=== PATIENT | female | born 1935 | race Caucasian/White ===

== ENCOUNTER 2016-03-31 | Outpatient (CLI) | payer MEDICARE, OTHER | END 2016-03-31 09:12 | disposition critical access hospital (66) | DX: R51 Headache (principal) | CPT/HCPCS: A0425; A0429 ==

== ENCOUNTER 2016-03-31 09:30 | Emergency (ER) | payer MEDICARE, OTHER ==
[2016-03-31] MEDS ORDERED: oxyCODONE 5 MG TABLET PO STA ×2 (09:35→12:25)
[2016-03-31] MEDS ORDERED: ONDANSETRON ODT 4 MG TABLET TL STA (09:36)
[2016-03-31] MEDS ORDERED: ONDANSETRON ODT 4 MG TABLET ONE (09:43)
[2016-03-31] MEDS ORDERED: oxyCODONE 5 MG TABLET ONE ×2 (09:43→12:28)
== END 2016-03-31 12:34 | disposition home or self-care (01) ==
DX: R51 Headache (principal); H66.91 Otitis media, unspecified, right ear
CPT/HCPCS: 36415; 70450; 72125; 80048; 99283; 99284; A9270; Q0162

== ENCOUNTER 2016-04-03 09:22 | Outpatient (CLI) | payer MEDICARE, OTHER | END 2016-04-03 09:23 | disposition home or self-care (01) | DX: Z12.31 Encounter for screening mammogram for malignant neoplasm of breast (principal) ==

== ENCOUNTER 2017-03-15 07:40 | Outpatient (CLI) | payer MEDICARE, OTHER | END 2017-03-15 07:41 | disposition critical access hospital (66) | LOC: EMS 07:40 | PROVIDERS: ATTEND Surgery | DX: R41.0 Disorientation, unspecified (principal); R51 Headache | CPT/HCPCS: A0425; A0429 ==

== ENCOUNTER 2017-03-15 07:57 | Observation (INO) | payer MEDICARE, OTHER ==
[2017-03-15] MEDS ORDERED: SODIUM CHLORIDE 0.9% 500 ML IV ONE (08:11)
--- NOTE | 2017-03-15 08:12 | ED Physician Documentation ---
PD HPI ALTERED MENTAL STATUS - Stated complaint Stated Complaint: CONFUSION - Chief complaint Chief Complaint: Neuro - History obtained from History obtained from: Patient - History of Present Illness Timing - onset: How many hours ago (likely in the past hour) Timing - details: Gradual onset, Still present Quality / character: Confused Associated symptoms: Headache. No: Fever, Stiff neck, Dyspnea, Cough, NVD Contributing factors: Recent illness (had URI symptoms last week and had abx by Dr. Belle for sore throat. Improved those symptoms.) Basline status: Alert and oriented X 3, Ambulatory Recently seen: Emergency Dept (2 days ago for headache and given meds in ED. Has had headache visits intermittently but not with the confusion/numbness associated.) Review of Systems Constitutional: denies: Fever, Chills Nose: denies: Rhinorrhea / runny nose, Congestion Throat: reports: Sore throat (last week) Respiratory: reports: Cough (last week) GI: denies: Abdominal Pain, Nausea, Vomiting, Diarrhea : denies: Dysuria, Frequency Skin: denies: Rash, Lesions Neurologic: denies: Generalized weakness, Near syncope, Syncope PD PAST MEDICAL HISTORY - Past Medical History Cardiovascular: None Respiratory: None Neuro: Headache/migraine Endocrine/Autoimmune: None - Past Surgical History Past Surgical History: Yes General: Appendectomy 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 - Present Medications Home Medications: Ambulatory Orders Medication Instructions Recorded Confirmed No Known Home Medications [No 03/13/17 03/13/17 Known Home Medications] - Allergies Allergies/Adverse Reactions: Allergies Allergy/AdvReac Type Severity Reaction Status Date / Time Penicillins Allergy Unknown Verified 03/13/17 15:31 - Living Situation Living Situation: reports: Alone Living Arrangement: reports: At home - Social History Does the pt smoke?: No Smoking Status: Never smoker Does the pt drink ETOH?: No Does the pt have substance abuse?: No - Immunizations Immunizations are current?: Yes PD ED PE NORMAL - Vitals Vital signs reviewed: Yes - General General: Well developed/nourished, Other (seems uncomfortable due to frontal headache. 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 No: Alert and oriented X 3, Normal speech (expressive aphasia with some to moderate sentence structure and word abnormal. No dysarthria. ) PD ED PE EXPANDED - Neuro Neuro: Confused, Normal motor, Normal Sensation, CNII-XII intact, PERRL, Cerebellar nl, Aphasia. No: Normal Speech (some expressive aphasia), Weakness, Abnormal sensation, Nystagmus, Dysarthria Results - Vitals Vitals: Vital Signs - 24 hr 03/15/17 03/15/17 03/15/17 07:58 08:22 09:33 Temperature 36.3 C L Heart Rate 75 71 80 Respiratory 18 18 16 Rate Blood Pressure 189/108 H 170/78 H 181/113 H O2 Saturation 98 98 97 03/15/17 03/15/17 10:14 11:08 Temperature Heart Rate 75 73 Respiratory 16 17 Rate Blood Pressure 169/90 H 159/71 H O2 Saturation 98 97 Oxygen O2 Source Room air - Labs Labs: Laboratory Tests 03/15/17 03/15/17 03/15/17 08:09 09:05 09:05 WBC 12.5 H RBC 4.37 Hgb 13.6 Hct 40.5 MCV 92.6 MCH 31.1 H MCHC 33.5 RDW 12.9 Plt Count 406 MPV 7.3 L Neut # 10.0 H Lymph # 1.3 L [place] # 1.1 H Eos # 0.1 Baso # 0.1 Absolute Nucleated RBC 0.00 Nucleated RBC % 0.0 ESR Sodium 132 L Potassium 4.3 Chloride 93 L Carbon Dioxide 23 Anion Gap 16.0 H BUN 15 Creatinine 0.5 Estimated GFR (MDRD) 118 Glucose 107 H Calcium 9.8 Magnesium 1.9 Total Bilirubin 0.4 AST 38 ALT 27 Alkaline Phosphatase 71 Troponin I < 0.04 Total Protein 8.3 H Albumin 4.4 Globulin 3.9 Albumin/Globulin Ratio 1.1 Lipase 28 Urine Color Urine Clarity Urine pH Ur Specific [place] Urine Protein Urine Glucose (UA) Urine Ketones Urine Occult Blood Urine Nitrite Urine Bilirubin Urine Urobilinogen Ur Leukocyte Esterase Ur Microscopic Review Urine Culture Comments 03/15/17 03/15/17 10:13 10:39 WBC RBC Hgb Hct MCV MCH MCHC RDW Plt Count MPV Neut # Lymph # [place] # Eos # Baso # Absolute Nucleated RBC Nucleated RBC % ESR 17 Sodium Potassium Chloride Carbon Dioxide Anion Gap BUN Creatinine Estimated GFR (MDRD) Glucose Calcium Magnesium Total Bilirubin AST ALT Alkaline Phosphatase Troponin I Total Protein Albumin Globulin Albumin/Globulin Ratio Lipase Urine Color LT. YELLOW Urine Clarity CLEAR Urine pH 7.5 Ur Specific [place] 1.015 Urine Protein NEGATIVE Urine Glucose (UA) NEGATIVE Urine Ketones NEGATIVE Urine Occult Blood NEGATIVE Urine Nitrite NEGATIVE Urine Bilirubin NEGATIVE Urine Urobilinogen 0.2 (NORMAL) Ur Leukocyte Esterase NEGATIVE Ur Microscopic Review NOT INDICATED Urine Culture Comments NOT INDICATED - Rads (name of study) head CT Radiology: Prelim report reviewed (no acute process), Discussed with rads brain angio CT Radiology: Prelim report reviewed (no acute process seen) PD MEDICAL DECISION MAKING - ED course Complexity details: reviewed results, re-evaluated patient (She is improved but still with some headache. Her speech is normal at this time. I am not sure she is having an atypical or complex migraine though it is unusual to have migraines start at her age. She does have recurrent headaches in the past but not with neuro symptoms. Consider TIA versus stroke with a normal CT T Michelle of the brain at this time. Inflammation marker of the sed rate is normal so unlikely to be vasculitis. Her white count is slightly elevated but no obvious bacterial infection. She does not have any adenopathy nor stiff neck to suggest meningitis. She does not have fever. I am not sure the cause of her symptoms. I would be concern for TIA or other vascular headache with neuro deficit.), considered differential, d/w patient Departure - Departure Disposition: ED Place in Observation Clinical Impression: Expressive aphasia Headache Qualifiers: Headache type: unspecified Headache chronicity pattern: acute headache Intractability: not intractable Qualified Code(s): R51 - Headache Condition: Stable Record reviewed to determine appropriate education?: Yes
--- NOTE | 2017-03-15 08:25 | CT Report ---
EXAM: CT HEAD EXAM DATE: 03/15/2017 08:19 AM. CLINICAL HISTORY: Confusion and trouble with vision this morning. COMPARISON: 03/13/2017. TECHNIQUE: Multiaxial CT images were obtained from the foramen magnum to the vertex. Reformats: Coron al. IV contrast: None. In accordance with CT protocol optimization, one or more of the following dose reduction techniques w ere utilized for this exam: automated exposure control, adjustment of mA and/or KV based on patient s ize, or use of iterative reconstructive technique. FINDINGS: Parenchyma: No intraparenchymal hemorrhage. No evidence of mass, midline shift, or CT findings of acu te infarction. Gutierrez-white differentiation is distinct. Diffuse chronic microangiopathic white matter changes are evident. Extraaxial Spaces: Normal for age. No subdural or epidural collections identified. Ventricles: The ventricles and cortical sulci are enlarged, consistent with age-related tissue loss. Sinuses and orbits: Imaged paranasal sinuses, orbits, and mastoids show no significant abnormality. Bones: No evidence of fracture or calvarial defect. Other: None. IMPRESSION: Generalized age-related cortical atrophic changes without evidence of acute intracranial abnormality. No significant change from prior. Critical test: Results conveyed to Dr. Mariee at 0822 hrs. [facility] Referring Provider Line: [phone] SITE ID: [id number]
[2017-03-15] MEDS ORDERED: MORPHINE 10 MG/ML VIAL IVP STA (08:41)
[2017-03-15] MEDS ORDERED: ONDANSETRON 4 MG/2 ML VIAL IVP STA (08:41)
[2017-03-15] MEDS ORDERED: IOPAMIDOL-300 100 ML VIAL ONE (08:55)
[2017-03-15] MEDS ORDERED: IOPAMIDOL-300 100 ML VIAL IVP ONE ×2 (09:26→14:25)
--- NOTE | 2017-03-15 09:39 | CT Report ---
EXAM: CT ANGIOGRAM HEAD. CT SCAN OF THE HEAD WITHOUT AND WITH CONTRAST. EXAM DATE: 03/15/2017 09:25 AM CLINICAL HISTORY: Headache for 2 days and confusion. COMPARISON: CT of the brain without contrast earlier today at 0815 hrs.. TECHNIQUE: - CT Scan Head: Using a multidetector scanner, axial images were acquired from the foramen magnum to the skull vertex prior to and following contrast administration. - CT Angiogram: Using a multidetector scanner, high-resolution axial images were acquired from the sk ull base through vertex following rapid infusion of intravenous contrast. Reformats: Multiplanar MIP reformats were reconstructed. Nascet criteria used for stenosis measurement. IV Contrast: 80 mL Isovue 300. In accordance with CT protocol optimization, one or more of the following dose reduction techniques w ere utilized for this exam: automated exposure control, adjustment of mA and/or KV based on patient s ize, or use of iterative reconstructive technique. FINDINGS: Brain CT without contrast: No acute abnormality or significant change, age-related changes are present. Brain CT with contrast: No abnormal enhancement. Head CT angiogram: No intracranial large vessel flow-limiting stenosis or occlusion. No evidence for aneurysm resighini of [place] or intracranial vertebrobasilar insufficiency. Patent distal internal carotid arteries. Impression: 1. No CT evidence for acute intracranial abnormality or enhancing mass. 2. Head CTA shows no evidence for large vessel occlusion or aneurysm. [facility] Referring Provider Line: [phone] SITE ID: [id number]
[2017-03-15 09:44] LABS: ALBUMIN 4.4 g/dL (3.2-5.5); ALBUMIN/GLOBULIN RATIO 1.1 (1.0-2.2); BILIRUBIN,TOTAL 0.4 mg/dL (0.2-1.0); CALCIUM 9.8 mg/dL (8.5-10.3); CREATININE 0.5 mg/dL (0.4-1.0); MAGNESIUM 1.9 mg/dL (1.7-2.8); TOTAL PROTEIN 8.3 g/dL (6.7-8.2)
[2017-03-15 10:30] LABS: CLARITY,URINE CLEAR (CLEAR); LEUKOCYTE ESTERASE, URINE NEGATIVE (NEGATIVE); NITRITE,URINE NEGATIVE (NEGATIVE); OCCULT BLOOD,URINE NEGATIVE (NEGATIVE); PH,URINE 7.5 PH (5.0-7.5); PROTEIN,URINE NEGATIVE (NEGATIVE); UROBILINOGEN,URINE 0.2 (NORMAL) E.U./dL (NORMAL)
[2017-03-15 10:31] LABS: BILIRUBIN,URINE NEGATIVE (NEGATIVE); GLUCOSE, URINE (UA) NEGATIVE (NEGATIVE); KETONES,URINE (UA) NEGATIVE (NEGATIVE)
[2017-03-15 10:34] LABS: BASOPHILS # (AUTO) 0.1 10^3/uL (0.0-0.1); BASOPHILS % (AUTO) 0.5 %; EOSINOPHILS # (AUTO) 0.1 10^3/uL (0.0-0.7); EOSINOPHILS % (AUTO) 0.6 %; HGB - HEMOGLOBIN 13.6 g/dL (12.0-16.0); LYMPHOCYTES # (AUTO) 1.3 10^3/uL (1.5-3.5); LYMPHOCYTES % (AUTO) 10.3 %; MEAN CORPUSCULAR HEMOGLOBIN 31.1 pg (27.0-31.0); MEAN CORPUSCULAR HGB CONC 33.5 g/dL (32.0-36.0); MEAN CORPUSCULAR VOLUME 92.6 fL (81.0-99.0); MEAN PLATELET VOLUME 7.3 fL (7.9-10.8); MONOCYTES # (AUTO) 1.1 10^3/uL (0.0-1.0); NEUTROPHILS % (AUTO) 79.6 %; PLT - PLATELET COUNT 406 10^3/uL (130-450); RED BLOOD COUNT 4.37 10^6/uL (4.20-5.40); RED CELL DISTRIBUTION WIDTH 12.9 % (12.0-15.0); WHITE BLOOD COUNT 12.5 x10^3/uL (4.8-10.8)
[2017-03-15] MEDS ORDERED: KETOROLAC 60 MG/2 ML VIAL IVP STA (11:08)
[2017-03-15] MEDS ORDERED: ACETAMINOPHEN 325 MG TABLET PO STA (11:08)
[2017-03-15] MEDS ORDERED: ACETAMINOPHEN 325 MG TABLET PO PRN (12:29)
[2017-03-15] MEDS ORDERED: SODIUM CHLORIDE FLUSH 0.9% 10 ML SYRINGE IVP PRN (12:29)
[2017-03-15] MEDS ORDERED: ONDANSETRON ODT 4 MG TABLET TL PRN (12:29)
[2017-03-15] MEDS ORDERED: oxyCODONE 5 MG TABLET PO PRN (12:29)
[2017-03-15] MEDS ORDERED: ONDANSETRON 4 MG/2 ML VIAL IVP PRN (12:29)
[2017-03-15 12:37] LABS: MUDS CUTOFF CONCENTRATIONS CUTOFF CONC BELOW:
[2017-03-15 12:38] LABS: AMPHETAMINE SCREEN,URINE NEGATIVE (NEGATIVE); BENZODIAZEPINES SCREEN, URINE NEGATIVE (NEGATIVE); COCAINE SCREEN URINE NEGATIVE (NEGATIVE); METHADONE SCREEN, URINE NEGATIVE (NEGATIVE); METHAMPHETAMINES SCREEN, URINE NEGATIVE (NEGATIVE); OPIATE SCREEN, URINE NEGATIVE (NEGATIVE); OXYCODONE SCREEN, URINE NEGATIVE (NEGATIVE); PROPOXYPHENE SCREEN, URINE NEGATIVE (NEGATIVE); TRICYCLIC ANTIDEPRESSANT,URINE NEGATIVE (NEGATIVE)
--- NOTE | 2017-03-15 13:58 | Ultrasound Preliminary Report ---
Exam: US CAROTID DOPPLER COMPLETE IMPRESSION: No hemodynamically significant stenoses. Validated velocity measurements with angiographic measurements and velocity criteria are extrapolated from diameter data as defined by the Society of Radiologists in Ultrasound Consensus Conference Radi ology 2003; 229;340-346. [facility] SITE ID: [id number]
--- NOTE | 2017-03-15 14:18 | Ultrasound Report ---
EXAM: CAROTID DOPPLER ULTRASOUND EXAM DATE: 03/15/2017 12:54 PM. CLINICAL HISTORY: Transient aphasia, confusion. COMPARISON: None. TECHNIQUE: Real-time sonographic vascular imaging was performed by the director database through the caroti d arterial system with a linear transducer utilizing color-flow, Doppler flow and spectral analysis. Multiple rental sales representative static images were saved for review. FINDINGS: RIGHT: RCCA Prox: PSV 91 cm/sec. RCCA Dist: PSV 78 cm/sec, EDV 15 cm/sec. RECA: PSV 98 cm/sec. R Bulb: PSV 102 cm/sec, EDV 14 cm/sec. ERNESTO Prox: PSV 84 cm/sec, EDV 10 cm/sec. ERNESTO Mid: PSV 63 cm/sec, EDV 17 cm/sec. ERNESTO Dist: PSV 50 cm/sec, EDV 13 cm/sec. RVA: PSV 54 cm/sec. RVA flow direction: Antegrade. LEFT: LCCA Prox: PSV 87 cm/sec. LCCA Dist: PSV 97 cm/sec, EDV 16 cm/sec. LECA: PSV 72 cm/sec. L Bulb: PSV 82 cm/sec, EDV 9 cm/sec. LICA Prox: PSV 82 cm/sec, EDV 22 cm/sec. LICA Mid: PSV 97 cm/sec, EDV 23 cm/sec. LICA Dist: PSV 75 cm/sec, EDV 20 cm/sec. LVA: PSV 46 cm/sec. LVA flow direction: Antegrade. Other: Minimal atheromatous disease is seen in the right internal carotid artery. Focal calcified orestes que and atheromatous disease is seen in the left carotid bulb/internal carotid artery. IMPRESSION: No hemodynamically significant stenoses. Validated velocity measurements with angiographic measurements and velocity criteria are extrapolated from diameter data as defined by the Society of Radiologists in Ultrasound Consensus Conference Radi ology 2003; 229;340-346. [facility] Referring Provider Line: [phone] SITE ID: [id number]
[2017-03-15] MEDS: SODIUM CHLORIDE FLUSH 0.9% 10 ML SYRINGE IVP SCH ×2 (14:37→21:03)
[2017-03-15] MEDS ORDERED: CARBOXYMETHYLCELLULOSE OPHTH DROPS EACHEYE PRN (14:59)
[2017-03-16] MEDS: SODIUM CHLORIDE FLUSH 0.9% 10 ML SYRINGE IVP SCH ×2 (06:06→07:41)
[2017-03-16 06:47] LABS: BASOPHILS # (AUTO) 0.1 10^3/uL (0.0-0.1); BASOPHILS % (AUTO) 1.1 %; EOSINOPHILS # (AUTO) 0.2 10^3/uL (0.0-0.7); EOSINOPHILS % (AUTO) 2.2 %; HGB - HEMOGLOBIN 13.2 g/dL (12.0-16.0); LYMPHOCYTES # (AUTO) 2.5 10^3/uL (1.5-3.5); LYMPHOCYTES % (AUTO) 24.4 %; MEAN CORPUSCULAR HEMOGLOBIN 31.1 pg (27.0-31.0); MEAN CORPUSCULAR HGB CONC 33.9 g/dL (32.0-36.0); MEAN CORPUSCULAR VOLUME 91.8 fL (81.0-99.0); MEAN PLATELET VOLUME 7.3 fL (7.9-10.8); MONOCYTES # (AUTO) 1.3 10^3/uL (0.0-1.0); MONOCYTES % (AUTO) 13.1 %; NEUTROPHILS # (AUTO) 6.1 10^3/uL (1.5-6.6); NEUTROPHILS % (AUTO) 59.2 %; PLT - PLATELET COUNT 439 10^3/uL (130-450); RED BLOOD COUNT 4.25 10^6/uL (4.20-5.40); RED CELL DISTRIBUTION WIDTH 12.4 % (12.0-15.0); WHITE BLOOD COUNT 10.2 x10^3/uL (4.8-10.8)
[2017-03-16] MEDS ORDERED: POLYETHYLENE GLYCOL 3350 17 GM PACKET PO SCH (09:00)
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
[2017-03-16 11:29] VITALS: BP 134/58
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
--- NOTE | 2017-03-16 13:04 | HISTORY & PHYSICAL EXAMINATION ---
DATE OF SERVICE: 03/15/2017 Physician: Gisela Dunaway MD DATE OF ADMISSION: 03/15/2017 PRIMARY CARE PROVIDER: Nicole Fontana ADMITTING PROVIDER: Gisela Dunaway MD CHIEF COMPLAINT: Garbled speech, confusion, and change in vision. HISTORY OF PRESENT ILLNESS: This is a mary elderly female who I suspect probably has some cognitive deficits of aging. She is a mary person, but wanders in her conversational style, and sometimes it is difficult to assess if she is at her baseline with her confusion or if this is her usual status. She lives alone. She is still able to drive, pay her own bills. She says meals are simple, but she eats 3 meals a day. Her risk factors for stroke or arteriosclerotic disease are age. She does not have diabetes, hyperlipidemia, smoking history, or hypertension. She has multiple encounters in the electronic medical record for headache. That goes back to 2011. She says that she used to have tremendous headaches associated with cervical spine disease. Once her spine got fixed with the fusion in 2011, her headaches got better, but in looking at her EMR she has encounters dating to after that. There is one encounter in the EMR from 08/2014 where she describes driving home and having an onset of right visual field defect that lasted 15-20 minutes. She has been told that she may have a migraine headache. With this current episode, she says that she started having a headache without fever, chills or sore throat a few hours ago. It gradually came on and became very severe. It caused her to feel confused, and she cannot remember if the visual defect was with this episode, or the episode from 2014. While she denies current focal deficit to the ER doctor, she reports a focal deficit to the nurse who is doing the intake on med/surg, and to me as well. She says that she felt like her right arm and right hand were tingly and numb. Prior to today, she was seen in the emergency room for a headache on 03/13/[address] Valle. That was associated with vomiting. She had just been worked on by her chiropractor as well in an effort to alleviate the headache and it did not get better. With Dr. Valle's evaluation, she was mildly hypertensive at 184. She received Ofirmev and Zofran and was able to go home. Today because of the visual field deficits, and confusion and inability to speak correctly, Dr. Mariee wondered if there was a different type of event going on. Her blood pressure is 189/108 and also went as high as 181/113. She is afebrile. Oxygenating well on room air. He finds her with a normal physical exam. A CT of the head is negative and CT angiogram of the head is negative. Carotid Dopplers have been done as well and she has no hemodynamically significant stenosis. She is now placed in observation. I have asked her if she has been seen by Neurology or a headache specialist for this. She does not remember. She says that this week she asked her daughter to buy her something for the headache. Her daughter bought her a 6- pack of beer yesterday. She only had one and she really did not like it. PAST MEDICAL HISTORY: 1. Osteoporosis. She used to take Forteo injections and then stopped for a while. Lost her bone density and then went back to taking Boniva. 2. Celiac disease with gluten intolerance. 3. Degenerative joint disease. 4. Cognitive deficit of aging. 5. G6, P6. 6. History of isolated thrombocytosis. It waxed and waned between 2014 and 2017. No thromboembolic events. No bleeding. Seen by Dr. Venkatesh Montaño, Oncology and cleared. ALLERGIES: NO KNOWN DRUG ALLERGIES. MEDICATIONS: 1. Boniva 150 mg every 28 days. 2. Calcium with vitamins. 3. Vitamin D. SOCIAL HISTORY: She was born in [place], and moved to [place] during the middle of World War II. She her first after meeting him in [place] and he was an [employer] man. Unfortunately, he at the age of 58 with a myocardial infarction. She then met her second who was in the [place] and they moved to [facility] for his career and she spent the rest of her life here on [facility]. She never smoked. She rarely drinks. Again, her last beer was last night. She has 6 children. One lives in [place], 1 in [place], 1 in [place], 1 in [place], 1 in [place], and 1 in [place]. She has no history of recreational substance abuse. FAMILY HISTORY: Mom at age 74 of endometrial cancer. Dad at age 76 of a heart attack. She had 1 brother who of unknown type of neoplasm in his 40s. Her 6 children are healthy as far as she knows. REVIEW OF SYSTEMS: CONSTITUTIONAL: She denies any constitutional complaints of unexpected weight changes, fevers, sweats. No unusual fatigue. ENT: She had the visual changes, but again I am not quite clear and she is neither of whether those visual changes are of a previous description from a previous ER visit in 2015 or is she talking about yesterday. She denies glaucoma or cataracts. She denies dysphagia. She felt that she had a momentary episode of dysarthria last night. PULMONARY: Denies coughing, wheezing, chest congestion. No history of asthma or allergies. CARDIOVASCULAR: Denies history of murmurs, arrhythmias, orthopnea, leg edema. GASTROINTESTINAL: Until she figured out she was gluten intolerant, her gut was miserable. Now that she has figured it out, she does much better. No problems with constipation or diarrhea. She denies rectal bleeding, but there is a note in the EMR where she was seen in the emergency room for rectal bleeding in 2011. She cannot remember if she had a colonoscopy or not. Meals are usually breakfast of gluten-free oatmeal or an egg. Lunch is something like a tuna sandwich or she will do a refrigerator scramble. Dinner can be a potato with lots of butter, salsa and cheese. She does not really like to eat meat. GENITOURINARY: Denies urgency, frequency, dysuria. No flank pain. JOINTS: Are occasionally achy in the morning, but nothing severe. No swelling. No new arthropathy. DERMATOLOGIC: Denies new lesions, new rashes, new itching. PSYCHIATRIC: Denies depression, anxiety, hallucinations. CENTRAL NERVOUS SYSTEM: She says that she has always been a "ditzy," forgetful person. She forgets where her keys are, her purse is, but she has never gotten lost. She has not forgotten to pay bills. She does describe driving with visual disturbances and her dysarthria. She denies syncope, seizures. PHYSICAL EXAMINATION: GENERAL: She is a mary, slender, alert, elderly female whose temperature is 36.5 on med/surg with a pulse of 68, blood pressure 132/48, respirations 15 and 95% on room air. Again, she had quite a bit of high blood pressure in the emergency room at 189/108. HEENT: Pupils are reactive. Sclerae are nonicteric. [place] and moist oral mucosa. LUNGS: Clear to auscultation and percussion. HEART: PMI is normally placed with a regular rate and rhythm. No murmurs, rubs or gallops. ABDOMEN: Soft, nontender. No organomegaly. Normal bowel sounds. EXTREMITIES: Thin, no clubbing, cyanosis or edema and only minimal deformities of osteoarthritis in the fingers and toes. NEUROLOGIC: She is alert, but can give conflicting dates. Sometimes it is 2018 , sometimes it is 1918. She cannot remember her children's numbers. It takes 5 efforts to remember all 6 children and where they live. It takes quite a bit of effort to remember when she moved to [place], but she has no focal deficits. 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 She has no tremors, no gait ataxia. CT of the head is reviewed as above, CT angiogram as above. Carotid Dopplers negative. LABORATORY STUDIES: Show a mild hyponatremia of 132 that has been present since March 2016. Glucose 107. Liver enzymes normal. Troponin less than 0.04. White cell count 12.5. That was elevated earlier this week as well. Platelets were 497 earlier, now 406. Urinalysis clear of infection. Urine tox screen is completely negative. ASSESSMENT AND PLAN: 1. A mary, elderly woman who has intermittent episodes of headache, and subjective complaints of dysarthria. I am also sensing cognitive deficits that have appeared to be subtly worse. Differential diagnosis will include the TIA she fears, but I also wonder if this one is just baseline dementia with gradual worsening and the headache syndrome, which is chronic, would be confusing her. She will be placed in observation overnight. I will attest that I do not anticipate this woman spending more than 1 midnight. If she stays longer than the 1 midnight, she will be reassessed at 96 hours for transfer or discharge. 2. Episodic malignant hypertension. Could this be early PRES syndrome? We will monitor blood pressure while she stays here and see if it links up with her high blood pressure and episodes of confusion. 3. Elevated white cell count, and intermittently elevated platelet. At this time, she has been seen by Oncology once before. If WBC continues to be elevated without signs of infection, she should continue to be followed by her PCP to monitor for an early bone marrow dyscrasia. 4. Cognitive deficit of aging. I am going to contact any of her children, see where they are with her mother's health. Wonder if there is any way that she could get a little bit more support. With her driving and using bad judgment, I wonder if she should be driving at all. 5. DO NOT RESUSCITATE status. 6. Deep venous thrombosis prophylaxis will be just encouraging ambulation since she is at low risk. TD: 03/16/2017 14:03 REIC
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
== END 2017-03-16 12:18 | disposition home or self-care (01) ==
LOC: EDUNIT# → ED 07:57 → OBS 12:29
PROVIDERS: ADMIT Specialist; ATTEND Specialist
DX: G45.9 Transient cerebral ischemic attack, unspecified (principal); G44.89 Other headache syndrome; I10 Essential (primary) hypertension; R41.89 Other symptoms and signs involving cognitive functions and awareness; M81.0 Age-related osteoporosis without current pathological fracture; E87.1 Hypo-osmolality and hyponatremia; Z66 Do not resuscitate; D72.829 Elevated white blood cell count, unspecified; Z79.83 Long term (current) use of bisphosphonates; K90.0 Celiac disease
CPT/HCPCS: 36415; 70450; 70496; 80053; 80306; 81003; 83690; 83735; 84484; 85025; 85651; 93005; 93880; 96361; 96374; 99285; A9270; G0378; Q9967; 81001; 87086

== ENCOUNTER 2017-03-24 09:20 | Outpatient (CLI) | payer MEDICARE, OTHER ==
--- NOTE | 2017-03-25 12:20 | DEXA Report ---
DEXA SCAN: 03/24/2017 CLINICAL INDICATION: Postmenopausal. TECHNIQUE: Dual energy x-ray absorptiometry (DXA) was performed on a [employer] system. Regions measured are the AP spine, femoral neck, and, if needed, forearm. COMPARISON: None. In accordance with the International Society for Clinical Densitometry (ISCD) guidelines, data from previous exams may be reanalyzed using current recommendations and techniques. This is done to allow a more accurate basis for comparison with the current study. FINDINGS The data for the lumbar spine is as follows: REGION BMD (g/cm/cm) T-SCORE Z-SCORE L1 0.858 -2.3 -0.2 L2 0.899 -2.5 -0.4 L3 0.912 -2.4 -0.3 L4 0.873 -2.7 -0.6 TOTAL 0.887 -2.4 -0.3 NOTE: All evaluable vertebrae are used for classification. The data for the hip is as follows: REGION BMD (g/cm/cm) T-SCORE Z-SCORE Neck 0.896 -1.0 1.4 TOTAL 0.863 -1.1 1.2 NOTE: The femoral neck or total proximal femur, whichever is lowest, is used for classification. IMPRESSION THE WHO CLASSIFICATION BASED ON THE INTERNATIONAL REFERENCE STANDARD IS OSTEOPENIA. THE FRACTURE RISK IS INCREASED. RECOMMENDATION: Patients with diagnosis of osteoporosis or osteopenia should have regular bone mineral density assessment. For those eligible for Medicare, routine testing is allowed once every 2 years. Testing frequency can be increased for patients who have rapidly progressing disease or for those who are receiving medical therapy to restore bone mass. COMMENT: World Health Organization (WHO) definitions for osteoporosis and osteopenia: NORMAL BMD: T-score at 1.0 or higher, fracture risk is low. OSTEOPENIA BMD: T-score between 1.0 and -2.5, fracture risk is increased. OSTEOPOROSIS BMD: T-score at 2.5 or lower, fracture risk high. National Osteoporosis Foundation recommends: 1. Obtain adequate dietary calcium (at least 1200 mg per day) and vitamin D (400 -800 international units per day). 2. Participate, as appropriate, in regular weightbearing and muscle- strengthening exercise. 3. Avoid tobacco use and reduce alcohol and caffeine intake. 4. For more detailed information see the website at www.NOF.org. TD: 03/24/2017 14:55 MTDD
== END 2017-03-24 09:21 | disposition home or self-care (01) ==
LOC: DI 09:20
PROVIDERS: ATTEND Internal Medicine
DX: M85.89 Other specified disorders of bone density and structure, multiple sites (principal)
CPT/HCPCS: 77080

== ENCOUNTER 2017-05-05 10:07 | Outpatient (CLI) | payer MEDICARE, OTHER ==
--- NOTE | 2017-05-07 18:29 | Mammography Report ---
DIGITAL SCREENING MAMMOGRAM: 05/05/2017 CLINICAL INDICATION: An 82-year-old with family history of breast cancer for screening. COMPARISON: 04/2016, 01/2015, 12/2014, 08/2013, 11/2011. TECHNIQUE: Routine CC and MLO projections were obtained of the breasts. FINDINGS: The breasts demonstrate heterogeneously dense fibroglandular parenchyma bilaterally. Punctate, typically benign calcifications are present. No suspicious masses, clustered microcalcifications, or regions of architectural distortion are identified. IMPRESSION: BENIGN FINDINGS. RECOMMENDATION: ROUTINE ANNUAL SCREENING UNLESS OTHERWISE CLINICALLY INDICATED. BIRADS category 2 benign findings. STANDARD QUALIFYING STATEMENTS 1. This examination was reviewed with the aid of Computed-Aided Detection (CAD). 2. A negative or benign imaging report should not delay biopsy if clinically suspicious findings are present. Consider surgical consultation if warranted. More than 5% of cancers are not identified by imaging. 3. Dense breasts may obscure an underlying neoplasm. TD: 05/07/2017 18:28
== END 2017-05-05 10:08 | disposition home or self-care (01) ==
LOC: DI 10:07
PROVIDERS: ATTEND Internal Medicine
DX: Z12.31 Encounter for screening mammogram for malignant neoplasm of breast (principal); Z80.3 Family history of malignant neoplasm of breast
CPT/HCPCS: 77067

== ENCOUNTER 2017-05-21 11:06 | Outpatient (CLI) | payer MEDICARE, OTHER | END 2017-05-21 11:07 | disposition critical access hospital (66) | LOC: EMS 11:06 | PROVIDERS: ATTEND Surgery | DX: R53.1 Weakness (principal); R20.0 Anesthesia of skin | CPT/HCPCS: A0425; A0427 ==

== ENCOUNTER 2017-05-21 11:26 | Observation (INO) | payer MEDICARE, OTHER ==
--- NOTE | 2017-05-21 11:38 | ED Physician Documentation ---
History of Present Illness - Stated complaint Stated Complaint: LEFT SIDE WEAKNESS - Additonal information Additional information: hx from pt 82 female to ER with L sided face and arm weakness occurred twice this AM both for 15 min now resolved no numbness vision or new hearing deficits she reports a hx of same many times in the past and states lots of tests but nodx given last visit for similar was Mar 2017 and she had CTH CTA head carotid dopplers - does not seem she has had an echo for these TIAs - her dc instructions from that admit indicate she as to get an outpt MRI via PCP but that has not happened yet Review of Systems Constitutional: denies: Fever Cardiac: denies: Chest pain / pressure Respiratory: denies: Dyspnea GI: denies: Abdominal Pain : denies: Dysuria Neurologic: reports: Focal weakness. 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 - Present Medications Home Medications: Ambulatory Orders Medication Instructions Recorded Confirmed Ibandronate Sodium [Boniva] 150 mg PO .MONTHLY 03/15/17 05/21/17 Aspirin EC [Ecotrin] 325 mg PO DAILY #30 tablet 05/21/17 Atorvastatin Calcium 40 mg PO DAILY #30 tablet 05/21/17 - Allergies Allergies/Adverse Reactions: Allergies Allergy/AdvReac Type Severity Reaction Status Date / Time gluten Allergy Severe Celiac Verified 05/21/17 16:20 disease Penicillins Allergy Unknown Verified 03/13/17 15:31 - Social History Does the pt smoke?: No Smoking Status: Never smoker Does the pt drink ETOH?: No Does the pt have substance abuse?: No - Immunizations Immunizations are current?: Yes PD ED PE NORMAL - Vitals Vital signs reviewed: Yes - General General: Alert and oriented X 3 - HEENT HEENT: PERRL, EOMI - Neck Neck: Supple, no meningeal sign - Cardiac Cardiac: RRR - Respiratory Respiratory: No respiratory distress, Clear bilaterally - Derm Derm: Normal color - Neuro Neuro: Alert and oriented X 3, 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, No motor deficit, No sensory deficit, Normal speech, Other (NIHSS zero - no sx now) Eye Opening: Spontaneous Motor: Obeys Commands Verbal: Oriented GCS Score: 15 Results - Vitals Vitals: Vital Signs - 24 hr 05/21/17 05/21/17 11:46 13:19 Temperature 36.4 C L Heart Rate 65 67 Respiratory 16 15 Rate Blood Pressure 175/95 H 163/91 H O2 Saturation 97 97 Oxygen O2 Source Room air - EKG (time done) 1203 Rate: Rate (enter#) (59) Rhythm: NSR Intervals: Normal NE Ischemia: Normal ST segments - Labs Labs: Laboratory Tests 05/21/17 05/21/17 05/21/17 12:04 12:04 12:04 WBC 9.4 RBC 4.48 Hgb 13.7 Hct 40.5 MCV 90.5 MCH 30.6 MCHC 33.8 RDW 13.5 Plt Count 398 MPV 7.3 L Neut # 6.0 Lymph # 2.0 Maverick # 1.1 H Eos # 0.1 Baso # 0.1 Absolute Nucleated RBC 0.00 Nucleated RBC % 0.0 PT 12.1 INR 1.1 Sodium 135 Potassium 4.0 Chloride 98 L Carbon Dioxide 27 Anion Gap 10.0 BUN 11 Creatinine 0.5 Estimated GFR (MDRD) 118 Glucose 99 Calcium 9.6 - Rads (name of study) CTH Radiology: See rad report (no acute) PD MEDICAL DECISION MAKING - ED course ED course: has had CTA head carotid doppler and tele so far but no echo - last time sx were R sided and this time L sided - so emboli could be a reasonable concern also pt was supposed to see PMD Dr Belle after dc for R TIA in Mar as outpt to get MRI and that has not yet been completed as an outpt will place in obs for serial neuro exam, echo, possible MRI Departure - Departure Disposition: ED Place in Observation Clinical Impression: TIA (transient ischemic attack) Qualifiers: Transient cerebral ischemia type: unspecified Qualified Code(s): G45.9 - Transient cerebral ischemic attack, unspecified Condition: Good Discharge Date/Time: 05/21/17 15:30
--- NOTE | 2017-05-21 12:05 | CT Report ---
EXAM: CT HEAD EXAM DATE: 05/21/2017 11:52 AM. CLINICAL HISTORY: L sided weakness X 15 minutes. COMPARISON: CT head 03/15/2017. TECHNIQUE: Multiaxial CT images were obtained from the foramen magnum to the vertex. Reformats: Coron al. IV contrast: None. In accordance with CT protocol optimization, one or more of the following dose reduction techniques w ere utilized for this exam: automated exposure control, adjustment of mA and/or KV based on patient s ize, or use of iterative reconstructive technique. FINDINGS: Age appropriate prominence of the ventricles and sulci is noted. Low attenuation is seen throughout the cerebral hemisphere white matter bilaterally. Areas of increased attenuation in the right inferior frontal lobe are felt to be artifact. There is s ome motion artifact on the examination. There is no hyperdense appearance seen in the basilar trunk or in the M1 segment of either MCA No extra-axial fluid collection is seen. No intracranial hemorrhage is present Mastoid air cells are well aerated. No suspicious lytic or blastic region is present in the calvarium IMPRESSION: 1. No acute intracranial process is identified by noncontrast head CT. 2. The head CT is not changed since the comparison study. 3. Presumed small vessel ischemic change is again seen in the cerebral hemisphere white matter sabrina alvarez Report phoned to the ordering physician at 12 PM on 05/21/2017 [facility] Referring Provider Line: [phone] SITE ID: [id number]
[2017-05-21 12:08] LABS: BASOPHILS # (AUTO) 0.1 10^3/uL (0.0-0.1); BASOPHILS % (AUTO) 1.2 %; EOSINOPHILS # (AUTO) 0.1 10^3/uL (0.0-0.7); EOSINOPHILS % (AUTO) 1.4 %; HGB - HEMOGLOBIN 13.7 g/dL (12.0-16.0); LYMPHOCYTES % (AUTO) 21.5 %; MEAN CORPUSCULAR HEMOGLOBIN 30.6 pg (27.0-31.0); MEAN CORPUSCULAR HGB CONC 33.8 g/dL (32.0-36.0); MEAN CORPUSCULAR VOLUME 90.5 fL (81.0-99.0); MEAN PLATELET VOLUME 7.3 fL (7.9-10.8); MONOCYTES # (AUTO) 1.1 10^3/uL (0.0-1.0); MONOCYTES % (AUTO) 11.4 %; NEUTROPHILS % (AUTO) 64.5 %; PLT - PLATELET COUNT 398 10^3/uL (130-450); RED BLOOD COUNT 4.48 10^6/uL (4.20-5.40); RED CELL DISTRIBUTION WIDTH 13.5 % (12.0-15.0); WHITE BLOOD COUNT 9.4 x10^3/uL (4.8-10.8)
[2017-05-21 12:13] LABS: INR 1.1 (0.8-1.2); PT - PROTHROMBIN TIME 12.1 secs (9.9-12.6)
[2017-05-21 12:18] LABS: CALCIUM 9.6 mg/dL (8.5-10.3); CREATININE 0.5 mg/dL (0.4-1.0)
[2017-05-21] MEDS ORDERED: SODIUM CHLORIDE FLUSH 0.9% 10 ML SYRINGE IVP PRN (14:07)
--- NOTE | 2017-05-21 14:30 | HISTORY & PHYSICAL EXAMINATION ---
Chief Complaint - Chief Complaint Chief Complaint: left facial and arm numbness History of Present Illness - Admitted From Admitted From:: ED - History Obtained From Records Reviewed: yes History obtained from: chart review, patient Exam Limitations: none - History of Present Illness HPI Comment/Other: Griselda Martin is a well appearing 82-year old female with a past medical history of prior TIA, spinal fusion, appendectomy, hysterectomy, headaches, osteoarthritis, and urinary incontinence. She states that shortly after she woke up this AM she had left facial numbness that involved 1/2 of her tongue, her forehead, her scalp, shoulder, arm, hand and fingers. She does not believe that her rib cage or hips were numb. She denies loss of consciousness, tingling , loss of balance, vision changes, drooling or dizziness. She states that this only lasted 5-10 minutes and went away on its own. She carried on with her day and went shopping with her daughter who states that her mother had problems with memory. They went to the store and she couldn't remember the items needed as "she forgot her list". She also had another episode right before the ambulance was called that was exactly the same, but the patient was frustrated about going with the ambulance drivers as her symptoms passed as she was getting in the vehicle and still has not returned at the time of this admission H & P. She will be admitted to the observation unit for further work up of these symptoms including an echo, telemetry monitoring, MRI and carotid dopplers. 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 03/16/17 05/21/17 Atorvastatin Calcium 40 mg PO DAILY #30 tablet 05/21/17 - Allergies Allergies/Adverse Reactions: Allergies Allergy/AdvReac Type Severity Reaction Status Date / Time gluten Allergy Severe Celiac Verified 05/21/17 16:20 disease Penicillins Allergy Unknown Verified 03/13/17 15:31 Conclusion/Plan - Lab Results Fish Bones: 05/21/17 12:04 05/21/17 12:04
[2017-05-21] MEDS ORDERED: SODIUM CHLORIDE FLUSH 0.9% 10 ML SYRINGE IVP SCH (17:00)
--- NOTE | 2017-05-21 17:01 | Discharge Plan ---
Discharge Plan Disposition: Home, Self Care Condition: Good Prescriptions: Aspirin EC [Ecotrin] 325 mg PO DAILY #30 tablet Atorvastatin Calcium 40 mg PO DAILY #30 tablet Diet: Regular Activity Restrictions: No Restrictions Shower Restrictions: No Driving Restrictions: Yes Weight Bearing: Full Weight Additional Instructions or Follow Up instructions: You were admitted to observation for a your symptoms earlier today of left facial and left arm numbness. Since you did not want the recommended MRI test, you are free to go home. All test results will be forwarded to your PCP and you should see them in one week. We had high blood pressure, and should be evaluated by your PCP about this. Please call your doctor or return to the ED if your symptoms return. No Smoking: If you smoke, Please STOP! Call for help. Follow-up with: Paola Belle MD [Primary Care Provider] -
[2017-05-21 17:12] VITALS: BP 180/78
--- NOTE | 2017-05-21 17:33 | DISCHARGE SUMMARY ---
Discharge Summary Admit Date: 05/21/17 Discharge Date: 05/21/17 Discharging Provider: DC Steen Code Status: Attempt Resuscitation Condition at Discharge: Good Discharge Disposition: 01 Home, Self Care - DIAGNOSES Admission Diagnoses: Other symptoms and signs involving cognitive functions and awareness (R41.89) Headache (R51) Transient cerebral ischemic attack, unspecified (G45.9) Anesthesia of skin (R20.0) Discharge Diagnoses with Status of Each Condition: Other symptoms and signs involving cognitive functions and awareness (R41.89) Headache (R51) Transient cerebral ischemic attack, unspecified (G45.9) Anesthesia of skin (R20.0) Hypertension (I10) - HPI History of Present Illness: Griselda Martin is a well appearing 82-year old female with a past medical history of prior TIA, spinal fusion, appendectomy, hysterectomy, headaches, osteoarthritis, and urinary incontinence. She states that shortly after she woke up this AM she had left facial numbness that involved 1/2 of her tongue, her forehead, her scalp, shoulder, arm, hand and fingers. She does not believe that her rib cage or hips were numb. She denies loss of consciousness, tingling , loss of balance, vision changes, drooling or dizziness. She states that this only lasted 5-10 minutes and went away on its own. She carried on with her day and went shopping with her daughter who states that her mother had problems with memory. They went to the store and she couldn't remember the items needed as "she forgot her list". She also had another episode right before the ambulance was called that was exactly the same, but the patient was frustrated about going with the ambulance drivers as her symptoms passed as she was getting in the vehicle and still has not returned at the time of this admission H & P. She will be admitted to the observation unit for further work up of these symptoms including an echo, telemetry monitoring, MRI and carotid dopplers. - HOSPITAL COURSE Hospital Course: Shortly after the admission exam, the echocardiogram was completed, so the patient states that she had enough testing done and she just wanted to get home. MRI techs came to pick her up and she refused. When her daughter Anisa came by to pickle maker her service dog, the patient was even more determined to go home. Her exam was normal and she had equal strength in all 4 extremities. She was fluent in her speech and could state her medical condition. She admits to STM loss at times but remains independent in her own home. Her daughter, Anisa states that physically she believes that her mother is safe in her home and denies recent falls. She wishes for her memory loss that her mother would sell her home and live with the daughter. The patient was able to ambulate freely about in her room with no ataxia noted. She was in stable condition and was taken by private car to her home. She did not have pain and did not require oxygen. Both Anisa and the patient were not interested in any test results thus far and are happy with the plan of forwarding any test results to the PCP. I recommended a full dose aspirin and a statin, which the patient states she will "think about". - ALLERGIES Allergies/Adverse Reactions: Allergies Allergy/AdvReac Type Severity Reaction Status Date / Time gluten Allergy Severe Celiac Verified 05/21/17 16:20 disease Penicillins Allergy Unknown Verified 03/13/17 15:31 - MEDICATIONS Home Medications: Ambulatory Orders Medication Instructions Recorded Confirmed Ibandronate Sodium [Boniva] 150 mg PO .MONTHLY 03/15/17 05/21/17 Aspirin EC [Ecotrin] 325 mg PO DAILY #30 tablet 05/21/17 Atorvastatin Calcium 40 mg PO DAILY #30 tablet 05/21/17 - PHYSICAL EXAM AT DISCHARGE General Appearance: positive: No acute distress, Alert Eyes Bilateral: positive: Normal inspection, PERRL ENT: positive: ENT inspection nml, Pharynx nml, No signs of dehydration Neck: positive: Nml inspection, Thyroid nml, No JVD, Trachea midline Respiratory: positive: Chest non-tender, No respiratory distress, Breath sounds nml Cardiovascular: positive: Regular rate & rhythm, Systolic murmur, Decreased pulse(s) Peripheral Pulses: positive: 1+ Abdomen: positive: Non-tender, No organomegaly, Nml bowel sounds Back: positive: Nml inspection Skin: positive: No rash, Warm, Dry, Pallor Extremities: positive: Non-tender, Full ROM, Nml appearance, No pedal edema Neurologic/Psychiatric: positive: Oriented x3, CN's nml (2-12), Motor nml, Weakness, Depressed mood/affect, Other (STM loss) Reflexes: Bicep (R): 4+, Bicep (L): 4+, Ankle (R): 4+, Ankle (L): 4+ - LABS Result Diagrams: 05/21/17 12:04 05/21/17 12:04 - DIAGNOSTIC IMAGING Diagnostic Imaging Results: Prelim report reviewed, Final report reviewed Diagnostic Imaging Results Comments: EXAM: CT HEAD EXAM DATE: 05/21/2017 11:52 AM. CLINICAL HISTORY: L sided weakness X 15 minutes. COMPARISON: CT head 03/15/2017. TECHNIQUE: Multiaxial CT images were obtained from the foramen magnum to the vertex. Reformats: Coronal. IV contrast: None. In accordance with CT protocol optimization, one or more of the following dose reduction techniques were utilized for this exam: automated exposure control, adjustment of mA and/or KV based on patient size, or use of iterative reconstructive technique. FINDINGS: Age appropriate prominence of the ventricles and sulci is noted. Low attenuation is seen throughout the cerebral hemisphere white matter bilaterally. Areas of increased attenuation in the right inferior frontal lobe are felt to be artifact. There is some motion artifact on the examination. There is no hyperdense appearance seen in the basilar trunk or in the M1 segment of either MCA No extra-axial fluid collection is seen. No intracranial hemorrhage is present Mastoid air cells are well aerated. No suspicious lytic or blastic region is present in the calvarium IMPRESSION: 1. No acute intracranial process is identified by noncontrast head CT. 2. The head CT is not changed since the comparison study. 3. Presumed small vessel ischemic change is again seen in the cerebral hemisphere white matter bilaterally - FOLLOW UP Follow Up: Disposition: 01 Home, Self Care Condition: Good Prescriptions: Aspirin EC [Ecotrin] 325 mg PO DAILY #30 tablet Atorvastatin Calcium 40 mg PO DAILY #30 tablet Diet: Regular Activity Restrictions: No Restrictions Shower Restrictions: No Driving Restrictions: Yes Weight Bearing: Full Weight Additional Instructions or Follow Up instructions: You were admitted to observation for a your symptoms earlier today of left facial and left arm numbness. Since you did not want the recommended MRI test, you are free to go home. All test results will be forwarded to your PCP and you should see them in one week. We had high blood pressure, and should be evaluated by your PCP about this. Please call your doctor or return to the ED if your symptoms return. - TIME SPENT Time Spent in Discharge (Minutes): 35
[2017-05-21] MEDS ORDERED: amLODIPine 5 MG TABLET PO SCH (18:00)
[2017-05-22] MEDS ORDERED: POLYETHYLENE GLYCOL 3350 17 GM PACKET PO SCH (09:00)
== END 2017-05-21 17:50 | disposition home or self-care (01) ==
LOC: EDUNIT# → ED 11:26 → OBS 14:07
PROVIDERS: ADMIT Nurse Practitioner; ATTEND Nurse Practitioner
DX: G45.9 Transient cerebral ischemic attack, unspecified (principal); I10 Essential (primary) hypertension; R40.2412 Glasgow coma scale score 13-15, at arrival to emergency department; Z79.82 Long term (current) use of aspirin; Z98.1 Arthrodesis status; Z53.29 Procedure and treatment not carried out because of patient's decision for other reasons
CPT/HCPCS: 36415; 70450; 80048; 85025; 85610; 93005; 93306; 99284; G0378

== ENCOUNTER 2018-08-07 14:44 | Outpatient (CLI) | payer MEDICARE, OTHER ==
--- NOTE | 2018-08-10 08:04 | Mammography Report ---
Reason: ANNUAL SCREENING Procedure Date: 08/07/2018 Accession Number: [id number] / [id number] Procedure: [facility]ARI - Screening Mammo Dig Bilat CPT Code: FULL RESULT: EXAM: Screening Mammo Dig Bilat DATE: 08/07/2018 3:29 PM CLINICAL HISTORY: Screening TECHNIQUE: (B) - Bilateral CC and MLO views were obtained. COMPARISON: 05/05/2017 PARENCHYMAL PATTERN: (A) - The breasts demonstrate scattered fibroglandular densities bilaterally. FINDINGS: Dating back to 2014, no change in small focal breast asymmetry central left breast, 6:00 position. There are no suspicious masses, calcifications, or areas of distortion. IMPRESSION: Negative examination. BI-RADS category 1. RECOMMENDATION: (ANNUAL) - Recommend routine annual screening mammography. BI-RADS CATEGORY: (1) - Negative. STANDARD QUALIFYING STATEMENTS: 1. This examination was not reviewed with the aid of Computer-Aided Detection (CAD). 2. A negative or benign imaging report should not preclude biopsy if clinically suspicious findings are present. 3. Dense breasts may obscure an underlying neoplasm. 4. This examination was reviewed without the aid of 3D breast imaging (tomosynthesis).
== END 2018-08-07 14:45 | disposition home or self-care (01) ==
LOC: DI 14:44
PROVIDERS: ATTEND Internal Medicine
DX: Z12.31 Encounter for screening mammogram for malignant neoplasm of breast (principal)
CPT/HCPCS: 77067

== ENCOUNTER 2019-12-09 14:35 | Outpatient (CLI) | payer MEDICARE, OTHER ==
--- NOTE | 2019-12-13 16:19 | Mammography Report ---
BILATERAL DIGITAL SCREENING MAMMOGRAM: 12/09/2019 CLINICAL: Routine screening. Comparison is made to exams dated: 08/07/2018 mammogram, 05/05/2017 mammogram, 04/03/2016 mammogram, 01/16 mammogram, 12/26/2014 mammogram, and 08/24/2013 mammogram - [facility]. There are scattered fibroglandular elements in both breasts. No significant masses, calcifications, or other findings are seen in either breast. There has been no significant interval change. IMPRESSION: NEGATIVE There is no mammographic evidence of malignancy. A 1 year screening mammogram is recommended. This exam was interpreted at Station ID: [id number]. NOTE: For mammograms, a report in lay terms will be sent to the patient. Approximately 15% of breast malignancies will not be visualized mammographically. In the management of a palpable breast mass, a negative mammogram must not discourage biopsy of a clinically suspicious lesion. Electronically Signed By: Grant acuna/toma:12/10/2019 09:04:31 ACR BI-RADS Category 1: Negative 3341F PARENCHYMAL PATTERN: (A) - The breast(s) demonstrate(s) scattered fibroglandular densities. BI-RADS CATEGORY: (1) - 1 RECOMMENDATION: (ANNUAL) - Recommend routine annual screening mammography. 20201210 1 year screening LATERALITY: (B)
== END 2019-12-09 14:36 | disposition home or self-care (01) ==
LOC: DI.N 14:35
PROVIDERS: ATTEND Internal Medicine
DX: Z12.31 Encounter for screening mammogram for malignant neoplasm of breast (principal); N95.9 Unspecified menopausal and perimenopausal disorder
CPT/HCPCS: 77067

== ENCOUNTER 2019-12-13 10:39 | Outpatient (CLI) | payer MEDICARE, OTHER ==
--- NOTE | 2019-12-13 16:20 | DEXA Report ---
PROCEDURE: Dexa Spine and/or Hip INDICATIONS: MENOPAUSAL TECHNIQUE: Dual energy x-ray absorptiometry (DXA) was performed on a [employer] System. Regions measur ed are the AP Spine, femoral neck, and if needed forearm. COMPARISON: 03/24/2017. FINDINGS: Lumbar Spine: Bone Mineral Density 0.892 g/cm/cm,T score -2.4, osteopenia Left Hip: Bone Mineral Density 0.802 g/cm/cm,T score -1.6, osteopenia Left Femoral Neck: Bone Mineral Density 0.824 g/cm/cm, T score -1.5, osteopenia (T score greater or equal to -1.0: NORMAL) (T score from -1.1 to -2.4: OSTEOPENIA) (T score less than or equal to -2.5 to: OSTEOPOROSIS) Impression: Osteopenia. Bone mineral density has decreased by 7.1% interval since prior exam obtained 03/24/2017. Patients with diagnosis of osteoporosis or osteopenia should have regular bone mineral density assess ment. For those eligible for Medicare, routine testing is allowed once every 2 years. Testing frequ ency can be increased for patients who have rapidly progressing disease or for those who are receivin g medical therapy to restore bone mass. Reviewed by: Daisha Unger MD, PhD on 12/13/2019 12:44 PM [facility] Approved by: Daisha Unger MD, PhD on 12/13/2019 12:44 PM PR[facility]HAK[facility] Station ID: [id number]
== END 2019-12-13 10:40 | disposition home or self-care (01) ==
LOC: DI 10:39
PROVIDERS: ATTEND Internal Medicine
DX: M85.89 Other specified disorders of bone density and structure, multiple sites (principal); N95.9 Unspecified menopausal and perimenopausal disorder
CPT/HCPCS: 77080

== ENCOUNTER 2020-05-02 20:20 | Outpatient (CLI) | payer MEDICARE, OTHER | END 2020-05-02 20:21 | disposition short-term general hospital (02) | LOC: EMS 20:20 | DX: M54.2 Cervicalgia (principal); R51.9 Headache, unspecified; R20.0 Anesthesia of skin | CPT/HCPCS: A0425; A0429; A0888 ==

== ENCOUNTER 2020-05-16 16:27 | Outpatient (CLI) | payer MEDICARE, OTHER ==
--- NOTE | 2020-05-16 17:19 | XRAY Report ---
PROCEDURE: Chest 2 View X-Ray INDICATIONS: OTHER CHEST PX TECHNIQUE: 2 view(s) of the chest. COMPARISON: None. FINDINGS: Surgical changes and devices: None. Lungs and pleura: No pleural effusions or pneumothorax. Lungs are clear. No focal consolidation. Mediastinum: Mediastinal contours are normal. Heart size is normal. Bones and chest wall: No suspicious bony abnormalities. Soft tissues appear unremarkable. 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 IMPRESSION: Chest without acute cardiopulmonary abnormalities. Reviewed by: Grant Etienne MD on 05/16/2020 5:18 PM PDT Approved by: Grant Etienne MD on 05/16/2020 5:18 PM PDT Station ID: [id number]
== END 2020-05-16 16:28 | disposition home or self-care (01) ==
LOC: DI.N 16:27
PROVIDERS: ATTEND Internal Medicine
DX: R07.89 Other chest pain (principal)

== ENCOUNTER 2021-04-06 12:46 | Outpatient (CLI) | payer MEDICARE, OTHER | END 2021-04-06 12:47 | disposition critical access hospital (66) | LOC: EMS 12:46 | DX: R41.0 Disorientation, unspecified (principal) | CPT/HCPCS: A0425; A0429 ==

== ENCOUNTER 2021-04-06 13:06 | Observation (INO) | payer MEDICARE, OTHER ==
[2021-04-06] MEDS ORDERED: SODIUM CHLORIDE 0.9% 1,000 ML IV STA (13:22)
--- NOTE | 2021-04-06 13:30 | ED Physician Documentation ---
PD HPI ALTERED MENTAL STATUS - Stated complaint Stated Complaint: CONFUSED - Chief complaint Chief Complaint: Neuro - History obtained from History obtained from: Patient, EMS - History of Present Illness Timing - onset: Today Timing - duration: Hours Timing - details: Still present in ED, Other (unknown time of onset) Quality / character: Confused, Memory Loss Associated symptoms: No: Fever, Headache, Stiff neck, Dyspnea, Cough, NVD, Urinary sx, General weakness, Focal weakness, Seizure activity, Syncope Contributing factors: No: Anticoagulated Basline status: Alert and oriented X 3, Ambulatory, Independent Similar symptoms before: No diagnosis Recently seen: Not recently seen - Additional information Additional information: 86-year-old female with some mild memory problems has now developed acute confusion. She had confusion enough that she was unable to open the door for the medics or figure out how to work the curtains. She arrives to the emergency department still with confusion but she does appear to have some insight into the fact that she is confused. She is not able to provide much in the way of history. I was able to get history from the patient's daughter and she is able to tell me that the patient has had upper respiratory symptoms for the past 2 weeks and the 2 of them have not been together much because of this. They both were sick and were avoiding each other. Review of Systems Unable to obtain: Confused Constitutional: denies: Fever Ears: denies: Ear pain Nose: reports: Congestion Cardiac: denies: Chest pain / pressure Respiratory: reports: Cough. 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: None : Incontinence, Frequency HEENT: Chronic vision loss Psych: None Musculoskeletal: Osteoarthritis Derm: None - Past Surgical History Past Surgical History: Yes General: Appendectomy Ortho: Other /DIRECTOR OF MARKETING [employer]NALYTICS: Hysterectomy - Present Medications Home Medications: Ambulatory Orders Medication Instructions Recorded Confirmed Aspirin EC [Ecotrin] 325 mg PO DAILY #30 tablet 05/21/17 07/26/20 Amlodipine Besylate [Norvasc] 2.5 mg PO DAILY 07/26/20 07/26/20 Ascorbic Acid [Vitamin C] 1 - 2 each PO DAILY 07/26/20 07/26/20 Basic B Complex 2 each PO TIDWM 07/26/20 07/26/20 Biovegetarian 1 - 3 each PO DAILY PRN 07/26/20 07/26/20 Bone Up 2 each PO TIDWM 07/26/20 07/26/20 Choleast 600 mg PO BID 07/26/20 07/26/20 Cholecalciferol [Vitamin D3] 1 cap PO DAILY 07/26/20 07/26/20 Chondro Care 1 each PO TIDWM 07/26/20 07/26/20 Coq10 1 each PO TIDWM 07/26/20 07/26/20 Ezetimibe [Zetia] 10 mg PO DAILY PM 07/26/20 07/26/20 Meriva 500 Sf 2 each PO DAILY 07/26/20 07/26/20 Multigenics 1 each PO TIDWM 07/26/20 07/26/20 Omegenics Oral Capsule 4 each PO DAILY 07/26/20 07/26/20 Similase 1 cap PO DAILYWM 07/26/20 07/26/20 Ultraflora Balance 1 each PO BID 07/26/20 07/26/20 lisinopriL [Prinivil] 10 mg PO DAILY 07/26/20 07/26/20 - Allergies Allergies/Adverse Reactions: Allergies Allergy/AdvReac Type Severity Reaction Status Date / Time gluten Allergy Severe Celiac Verified 04/06/21 13:12 disease Penicillins Allergy Unknown Verified 03/13/17 15:31 - Social History Does the pt smoke?: No Smoking Status: Never smoker Does the pt drink ETOH?: No Does the pt have substance abuse?: No - Immunizations Immunizations are current?: Yes - POLST Patient has POLST: No POLST Status: DNR PD ED PE NORMAL - Vitals Vital signs reviewed: Yes (hypertensive ) - General General: No acute distress, Well developed/nourished, Other (Alert, conversant but confused. ) - HEENT HEENT: Atraumatic, PERRL, EOMI, Other (dry mucous membranes) - Neck Neck: Supple, no meningeal sign, No bony TTP - Cardiac Cardiac: RRR, No murmur - Respiratory Respiratory: No respiratory distress, Other (diminished breath sounds. ) - Abdomen Abdomen: Soft, Non tender - Back Back: No CVA TTP, No spinal TTP - Derm Derm: Normal color, Warm and dry, No rash - Extremities Extremities: No deformity, No edema - Neuro Neuro: crew trainer 2-12 intact, No motor deficit, No sensory deficit, Normal speech Eye Opening: Spontaneous Motor: Obeys Commands Verbal: Confused GCS Score: 14 - Psych Psych: Normal mood, Normal affect Results - Vitals Vitals: Vital Signs - 24 hr 04/06/21 04/06/21 04/06/21 13:12 14:21 16:00 Temperature 36.0 C L Heart Rate 82 87 78 Respiratory 20 22 12 Rate Blood Pressure 170/82 H 195/88 H 164/90 H O2 Saturation 98 98 95 Oxygen O2 Source Room air - EKG (time done) 1344 Rate: Rate (enter#) (78) Rhythm: NSR Intervals: RBBB Compare to prior EKG: Changed from prior EKG (SPT 05-21-2017 rate has increased) Computer interpretation: Agree with computer - Labs Labs: Laboratory Tests 04/06/21 04/06/21 04/06/21 13:40 13:59 14:39 WBC 6.5 RBC 4.03 L Hgb 12.6 Hct 37.5 MCV 93.1 MCH 31.3 H MCHC 33.6 RDW 12.5 Plt Count 359 MPV 9.0 Neut # (Auto) 3.7 Lymph # (Auto) 1.9 [place] # (Auto) 0.8 Eos # (Auto) 0.1 Baso # (Auto) 0.0 Absolute Nucleated RBC 0.00 Nucleated RBC % 0.0 Sodium 133 L Potassium 4.2 Chloride 99 L Carbon Dioxide 25 Anion Gap 9.0 BUN 10 Creatinine 0.5 Estimated GFR (MDRD) 117 Glucose 108 H Lactic Acid 2.0 Calcium 9.2 Total Bilirubin 0.4 AST 30 ALT 23 Alkaline Phosphatase 66 Total Protein 7.6 Albumin 3.7 Globulin 3.9 Albumin/Globulin Ratio 0.9 L Lipase 36 Urine Color Urine Clarity Urine pH Ur Specific Ceres Urine Protein Urine Glucose (UA) Urine Ketones Urine Occult Blood Urine Nitrite Urine Bilirubin Urine Urobilinogen Ur Leukocyte Esterase Ur Microscopic Review Urine Culture Comments Nasal Adenovirus (PCR) Nasal B. parapertussis DNA (PCR) Nasal Coronavir 229E PCR Nasal Coronavir HKU1 PCR Nasal Coronavir NL63 PCR Nasal Coronavir OC43 PCR Nasal Enterovir/Rhinovir PCR Nasal Influenza B PCR Nasal Influenza A PCR Nasal Parainfluen 1 PCR Nasal Parainfluen 2 PCR Nasal Parainfluen 3 PCR Nasal Parainfluen 4 PCR Nasal RSV (PCR) Nasal B.pertussis DNA PCR Nasal C.pneumoniae (PCR) Papo Human Metapneumo PCR Nasal M.pneumoniae (PCR) Nasal SARS-CoV-2 (PCR) 04/06/21 04/06/21 14:43 15:50 WBC RBC Hgb Hct MCV MCH MCHC RDW Plt Count MPV Neut # (Auto) Lymph # (Auto) [place] # (Auto) Eos # (Auto) Baso # (Auto) Absolute Nucleated RBC Nucleated RBC % Sodium Potassium Chloride Carbon Dioxide Anion Gap BUN Creatinine Estimated GFR (MDRD) Glucose Lactic Acid Calcium Total Bilirubin AST ALT Alkaline Phosphatase Total Protein Albumin Globulin Albumin/Globulin Ratio Lipase Urine Color YELLOW Urine Clarity CLEAR Urine pH 7.5 Ur Specific [place] 1.015 Urine Protein NEGATIVE Urine Glucose (UA) NEGATIVE Urine Ketones NEGATIVE Urine Occult Blood NEGATIVE Urine Nitrite NEGATIVE Urine Bilirubin NEGATIVE Urine Urobilinogen 0.2 (NORMAL) Ur Leukocyte Esterase NEGATIVE Ur Microscopic Review NOT INDICATED Urine Culture Comments NOT INDICATED Nasal Adenovirus (PCR) NOT DETECTED Nasal B. parapertussis DNA (PCR) NOT DETECTED Nasal Coronavir 229E PCR NOT DETECTED Nasal Coronavir HKU1 PCR NOT DETECTED Nasal Coronavir NL63 PCR NOT DETECTED Nasal Coronavir OC43 PCR NOT DETECTED Nasal Enterovir/Rhinovir PCR NOT DETECTED Nasal Influenza B PCR NOT DETECTED Nasal Influenza A PCR NOT DETECTED Nasal Parainfluen 1 PCR NOT DETECTED Nasal Parainfluen 2 PCR NOT DETECTED Nasal Parainfluen 3 PCR NOT DETECTED Nasal Parainfluen 4 PCR NOT DETECTED Nasal RSV (PCR) NOT DETECTED Nasal B.pertussis DNA PCR NOT DETECTED Nasal C.pneumoniae (PCR) NOT DETECTED Papo Human Metapneumo PCR NOT DETECTED Nasal M.pneumoniae (PCR) NOT DETECTED Nasal SARS-CoV-2 (PCR) DETECTED A - Rads (name of study) CT head Radiology: Prelim report reviewed (Impression: No acute intracranial abnormality.), EMP read indepedently, See rad report chest Radiology: Prelim report reviewed (Impression: Mild atypical pneumonia), EMP read indepedently, See rad report Procedures - IVC sono (time) 1320 Bedside IVC sono: IVC measures (cm) (1.01), Dehydration (est 1-2 liter deficit) PD MEDICAL DECISION MAKING - ED course Complexity details: reviewed old records, reviewed results, re-evaluated patient, considered differential, d/w patient ED course: 86-year-old female who lives alone is found to be markedly confused today. She had a hard time allowing the medics into her house. She could not figure out how to work the door latch could figure out how to work the curtains. They brought the patient to the emergency department with a chief complaint of confusion and she is unable to provide us with any other specific details. On examination she appears to be an elderly female she is mildly dehydrated on interrogation the inferior inferior vena cava she is talking and answering questions some of them she is able to answer appropriately. She is easily confused and misdirected. She has otherwise a nonfocal neurologic examination. She has had prior episodes similar to this when she has been ill. On our work- up today we found the patient's chest x-ray abnormal to look like atypical pneumonia. A Covid PCR was obtained and is positive. The patient is not hypoxic. She is too confused to return home.In the emergency department she received treatment including a liter of saline a gram of Rocephin 500 mg of a azithromycin.I am finding the patient is aware she is confused and that she has had this happen to her previously. When I discussed with her that she has Covid she says she has had "all that stuff" before. I contacted the daughter and she indicated that her mother has had URI symptoms for about 2 weeks and she confirms that her mother had had significant confusion with illness previously. Departure - Departure Disposition: 66 [facility] DC/Xfer Clinical Impression: Atypical pneumonia, COVID Altered mental status Qualifiers: Altered mental status type: disorientation Qualified Code(s): R41.0 - Disorientation, unspecified
[2021-04-06 14:09] LABS: BASOPHILS % (AUTO) 0.6 %; EOSINOPHILS # (AUTO) 0.1 10^3/uL (0.0-0.7); EOSINOPHILS % (AUTO) 1.1 %; HCT - HEMATOCRIT 37.5 % (37.0-47.0); HGB - HEMOGLOBIN 12.6 g/dL (12.0-16.0); LYMPHOCYTES # (AUTO) 1.9 10^3/uL (1.5-3.5); LYMPHOCYTES % (AUTO) 28.9 %; MEAN CORPUSCULAR HEMOGLOBIN 31.3 pg (27.0-31.0); MEAN CORPUSCULAR HGB CONC 33.6 g/dL (32.0-36.0); MEAN CORPUSCULAR VOLUME 93.1 fL (81.0-99.0); MONOCYTES # (AUTO) 0.8 10^3/uL (0.0-1.0); MONOCYTES % (AUTO) 12.7 %; NEUTROPHILS # (AUTO) 3.7 10^3/uL (1.5-6.6); NEUTROPHILS % (AUTO) 56.1 %; PLT - PLATELET COUNT 359 10^3/uL (130-450); RED BLOOD COUNT 4.03 10^6/uL (4.20-5.40); RED CELL DISTRIBUTION WIDTH 12.5 % (12.0-15.0); WHITE BLOOD COUNT 6.5 x10^3/uL (4.8-10.8)
--- NOTE | 2021-04-06 14:31 | XRAY Report ---
PROCEDURE: Chest 1 View X-Ray INDICATIONS: chest pain TECHNIQUE: One view of the chest was acquired. COMPARISON: Plain films dated 05/16/2020 FINDINGS: Surgical changes and devices: None. Lungs and pleura: No pleural effusions or pneumothorax. There is mild diffuse basilar predominant in terstitial pulmonary opacity. Mediastinum: Mediastinal contours appear normal. Heart size is normal. Bones and chest wall: No suspicious bony lesions. Overlying soft tissues appear unremarkable. IMPRESSION: Mild atypical pneumonia. Reviewed by: Jaky aLl MD on 04/06/2021 2:29 PM PST Approved by: Jaky Lal MD on 04/06/2021 2:29 PM PST Station ID: [id number]
--- NOTE | 2021-04-06 14:32 | CT Report ---
PROCEDURE: HEAD WO INDICATIONS: confusion TECHNIQUE: Noncontrast 4.5 mm thick angled axial sections acquired from the foramen magnum to the vertex. For r adiation dose reduction, the following was used: automated exposure control, adjustment of mA and/or kV according to patient size. COMPARISON: None. FINDINGS: Image quality: Excellent. CSF spaces: Basal cisterns are patent. No extra-axial fluid collections. Ventricles are normal in size and shape. Brain: No midline shift. No intracranial masses or hemorrhage. Gutierrez-white matter interface is norm al. Skull and face: Calvarium and visualized facial bones are intact, without suspicious lesions. Sinuses: Visualized sinuses and mastoids are clear. IMPRESSION: No acute intracranial abnormality. Reviewed by: Jaky Lal MD on 04/06/2021 2:30 PM PST Approved by: Jaky Lal MD on 04/06/2021 2:30 PM [facility] Station ID: [id number]
[2021-04-06] MEDS ORDERED: AZITHROMYCIN INJ 500 MG in SODIUM CHLORIDE 0.9% 250 ML IV STA (14:38)
[2021-04-06] MEDS ORDERED: cefTRIAXone 1 GM in SODIUM CHLORIDE 0.9% MINIBAG 100 ML IV STA (14:38)
[2021-04-06] MEDS ORDERED: ACETAMINOPHEN 325 MG TABLET PO STA (14:40)
[2021-04-06 15:02] LABS: ALBUMIN 3.7 g/dL (3.2-5.5); ALBUMIN/GLOBULIN RATIO 0.9 (1.0-2.2); BILIRUBIN,TOTAL 0.4 mg/dL (0.2-1.0); CALCIUM 9.2 mg/dL (8.5-10.3); CREATININE 0.5 mg/dL (0.4-1.0); POTASSIUM 4.2 mmol/L (3.5-5.0); TOTAL PROTEIN 7.6 g/dL (6.7-8.2)
[2021-04-06 15:54] LABS: CORONAVIRUS 229E-RESP PCR NOT DETECTED; CORONAVIRUS HKU1-RESP PCR NOT DETECTED; CORONAVIRUS NL63-RESP PCR NOT DETECTED; CORONAVIRUS OC43-RESP PCR NOT DETECTED
[2021-04-06 15:55] LABS: B. PARAPERTUSSIS- RESP PCR PAN NOT DETECTED; B. PERTUSSIS- RESP PCR PANEL NOT DETECTED; C. PNEUMONIAE- RESP PCR PANEL NOT DETECTED; HUMAN METAPNEUMOVIRUS NOT DETECTED; INFLUENZA A- RESP PCR PANEL NOT DETECTED; INFLUENZA B - RESP PCR PANEL NOT DETECTED; M. PNEUMONIAE- RESP PCR PANEL NOT DETECTED; PARAINFLUENZA VIRUS 1 NOT DETECTED; PARAINFLUENZA VIRUS 2 NOT DETECTED; PARAINFLUENZA VIRUS 3 NOT DETECTED; PARAINFLUENZA VIRUS 4 NOT DETECTED; RHINOVIRUS/ENTEROVIRUS NOT DETECTED; RSV- RESP PCR PANEL NOT DETECTED; SARS-CoV-2 -RESP PCR PANEL DETECTED
[2021-04-06 16:40] LABS: BILIRUBIN,URINE NEGATIVE (NEGATIVE); GLUCOSE, URINE (UA) NEGATIVE (NEGATIVE); KETONES,URINE (UA) NEGATIVE (NEGATIVE); LEUKOCYTE ESTERASE, URINE NEGATIVE (NEGATIVE); NITRITE,URINE NEGATIVE (NEGATIVE); OCCULT BLOOD,URINE NEGATIVE (NEGATIVE); PH,URINE 7.5 PH (5.0-7.5); PROTEIN,URINE NEGATIVE (NEGATIVE); UROBILINOGEN,URINE 0.2 (NORMAL) E.U./dL (NORMAL)
[2021-04-06 16:43] LABS: CLARITY,URINE CLEAR (CLEAR)
[2021-04-06] MEDS ORDERED: oxyCODONE 5 MG TABLET PO PRN (17:15)
[2021-04-06] MEDS ORDERED: ACETAMINOPHEN 325 MG TABLET PO PRN (17:15)
[2021-04-06] MEDS ORDERED: ONDANSETRON ODT 4 MG TABLET TL PRN (17:15)
[2021-04-06] MEDS ORDERED: ONDANSETRON 4 MG/2 ML VIAL IVP PRN (17:15)
[2021-04-06] MEDS ORDERED: SODIUM CHLORIDE FLUSH 0.9% 10 ML SYRINGE IVP PRN (17:15)
--- NOTE | 2021-04-06 17:35 | HISTORY & PHYSICAL EXAMINATION ---
Chief Complaint - Chief Complaint Chief Complaint: sudden confusion History of Present Illness - Admitted From Admitted From:: home via EMS - History Obtained From Records Reviewed: [facility] History obtained from: Dr. Pleitez and record Exam Limitations: her confusion - History of Present Illness HPI Comment/Other: This is an elderly female whose past medical history is that of transient ischemic attacks. A March 2017 episode consisted of garbled speech and confusion and she was brought into the hospital. She then had another episode in May 2017 where her left face felt numb and the left part of her tongue felt numb. Forgetful for years but family disagrees on how bad for for how long. As an example of what she is forgetting the only thing they could say for sure is constant misplacing of items. She stayed w her son in [place] for 2.5 months at the end of 2020 and they would spend up to 2 hours looking for purses, leashes, keys that she misplaced. But she knows where she is, knows who people are and doesn' t get lost. Son feels she is still "fine" but reluctantly states she is just forgetting more in the last few months. It's been going on for years, just worse. EMS was called by son in [place] when mom was just not improving over the course of the day. The patient knows that she is confused. That is when she tried to call 911 on her own and could not do it. So she called her son. He called EMS. She also could not let EMS in to her front door because couldn't figure out how to open it. In the ER, Temperature was 36. Blood pressure 170/82. 98% on room air. 20 respiratory rate. 82 heart rate. There is no antecedent history of fever, chills, sore throat, But she has had a runny nose, and mild symptoms of a cold. Some sinus congestion. That is been going on for 2 weeks. There is no sudden visual change. There is no cough, chest congestion. There is no urgency, frequency, dysuria. There is no abdominal pain. There is no change in bowel habits. Gluten intolerant and if she doesn't eat right she gets confused. There has been no recent change in medications.On examination she was hypertensive. Well-nourished well-developed. Alert and conversant but confused. She had some dry mucous membranes. But cranial nerves were intact. Lungs had diminished breath sounds but were clear and she did not have respiratory distress. Other than confusion there were no other findings on neurological exam. She had normal speech, followed commands and had no focal deficits. EKG was sinus rhythm. CBC was normal. CMP was essentially normal as well. She was Covid positive on PCR. And chest x-ray has early mild diffuse basilar interstitial pulmonary opacities. Head CT has no acute intracranial processes. On the basis of her delirium, the patient will be placed in observation. History - Past Medical History Cardiovascular: reports: Hypertension Respiratory: reports: None Neuro: reports: Dementia (forget where she puts stuff, misplaced things. Auto p ay so no bill problems), TIA (CT angiogram in March 2017 had no evidence for large vessel occlusion or aneurysm of head or neck. CT of head in March and May of that year had no acute intracranial processes identified. She had presumed small vessel ischemic changes. There has been no MRI in the EMR noted.), Migraines Endocrine/Autoimmune: reports: None GI: reports: Chronic diarrhea (if eats wrong food), Other (gluten intolerance.) SOLARIS ADMINISTRATOR: reports: Other () : reports: Incontinence, Frequency HEENT: reports: Chronic vision loss (wears glasses) Psych: reports: None Musculoskeletal: reports: Osteoarthritis Derm: reports: None MRSA Hx?: No - Past Surgical History General: reports: Appendectomy Ortho: reports: Other /SOLARIS ADMINISTRATOR: reports: Hysterectomy - Family & Social History Family History: Mother: , Cancer, Father: , CAD, [place], Brother: , Cancer Family History Comment/Other: The patient's mother at age 74 after complications from endometrial cancer. Her father at age 76 after suffering a heart attack. She had only one brother of whom had cancer and ~age 40. 4 children and 2 adopted and for the most part healthy. BP in one. Chol in one. Living arrangement: At home Living Situation: Alone Social History Notes: The patient was born in the state of [place], then moved to [facility] during the middle of [place]. Her first was in the [employer], and he went into the [employer] when he retired and then at the age of 58 after suffering a [place]. Her second was not and they moved to [facility] for his career and she has resided on the [place] since then. She has 6 children who live in [place], [place], [place], [place] and one in [place]. She denies the use of tobacco, illicit drugs and rarely has alcohol. She wishes to be a DNR. The daughter who lives nearby in [place] will be the one to pick her one. Son in [place] is the one we call. - Substance History Use: Uses substance without health or social issues: NONE Abuse: Recurrent use of substance despite neg consequences: NONE Dependence: Experiences withdrawal or developed tolerances: NONE - POLST Patient has POLST: No POLST Status: DNR (this is her wish and I shared that with her son) Meds/Allgy - Home Medications Home Medications: Ambulatory Orders Medication Instructions Recorded Confirmed Aspirin EC [Ecotrin] 325 mg PO DAILY #30 tablet 05/21/17 07/26/20 Amlodipine Besylate [Norvasc] 2.5 mg PO DAILY 07/26/20 04/07/21 Ascorbic Acid [Vitamin C] 1 - 2 each PO DAILY 07/26/20 07/26/20 Cholecalciferol [Vitamin D3] 1 cap PO DAILY 07/26/20 07/26/20 lisinopriL [Prinivil] 10 mg PO DAILY 07/26/20 04/07/21 - Allergies Allergies/Adverse Reactions: Allergies Allergy/AdvReac Type Severity Reaction Status Date / Time gluten Allergy Severe Celiac Verified 04/06/21 13:12 disease Penicillins Allergy Unknown Verified 03/13/17 15:31 Review of Systems - Constitutional Constitutional: reports: Fatigue, Weakness. denies: Fever, Chills, Malaise, Diaphoresis, Night sweats - Eyes Eyes: reports: Blurred vision, Vision loss (chronic and not new). denies: Pain, Irritation, Amaurosis - Ears, Nose & Throat Ears, Nose & Throat: reports: Nasal discharge, Nasal congestion, Postnasal drainage, Hoarseness. denies: Ear pain, Hearing loss, Hearing aids, Tinnitus, Vertigo - Cardiovascular Cariovascular: denies: Irregular heart rate, Palpitations, Chest pain, Edema, Lightheadedness, Syncope, Exertional dyspnea, Decr. exercise tolerance - Respiratory Respiratory: denies: Cough, Sputum production, Wheezing, Snoring, SOB at rest, SOB with exertion - Gastrointestinal Gastrointestinal: reports: Diarrhea (if she eats the wrong food). denies: Abdominal pain, Abdominal distention, Constipation, Black stools, Bloody stools, Nausea - Genitourinary Genitourinary: reports: Frequency, Urgency, Incontinence (not new) - Musculoskeletal Musculoskeletal: reports: Stiffness, Joint pain (not new) - Integumentary Integumentary: denies: Rash, Pruritis, Lesions, Dryness - Neurological Neurological: reports: General weakness, Headache, Memory problems. denies: Focal weakness, Dizziness, Numbness, Pre-existing deficit, Abnormal gait, Seizures - Psychiatric Psychiatric: denies: Depression, Anxiety, Suicidal - Endocrine Endocrine: reports: Intolerance to cold. denies: Polyuria, Polydypsia, Polyphagia - Hematologic/Lymphatic Hematologic/Lymphatic: denies: Anemia, Bruising, Petechiae Prior Level of Functionality: Son states that she lives alone independently in her home. She does get help from her daughter who lives nearby. But she still dresses herself, feed herself, and has bills on auto pay. She still cooks for herself. Exam - Vital Signs Vital Signs: Vital Signs x48h Temp Pulse Resp BP Pulse Ox 04/06/21 16:00 78 12 164/90 H 95 04/06/21 14:21 87 22 195/88 H 98 04/06/21 13:12 36.0 C L 82 20 170/82 H 98 - Physical Exam General Appearance: positive: No acute distress, Alert, Other (wearing glasses, confused, slightly anxious bc she can't "do things right") Eyes Bilateral: positive: PERRL, EOMI ENT: positive: No signs of dehydration Neck: positive: No JVD. negative: Stiff neck Respiratory: positive: No respiratory distress. negative: Wheezes, Rales, Rhonchi Cardiovascular: positive: Regular rate & rhythm, Systolic murmur. negative: Gallop/S4, Friction rub Peripheral Pulses: positive: 1+ Abdomen: positive: Non-tender, No organomegaly, Nml bowel sounds, No distention Skin: positive: Warm, Dry Extremities: positive: Full ROM, No pedal edema Neurologic/Psychiatric: positive: CN's nml (2-12), Motor nml, Disoriented to time, Slurred/abnml speech (short choppy sentences w anxiety and occ loss of words. goes blank for a bit then picks it up). negative: Mood/affect nml Reflexes: Bicep (R): 1+, Bicep (L): 1+, Knee (R): 1+, Knee (L): 1+, Ankle (R): 0, Ankle (L): 0 Babinski Reflex: Right: Up, Left: Up Conclusion/Plan - Problem List (1) Delirium Conclusion/Plan: This patient has not had any medications that would cause this. While she is ill with Covid and has early changes of interstitial pneumonia, she is not hypoxic. She does not have a fever. She does not have electrolyte derangement. We are puzzled by why she has such severe delirium that is so sudden onset. She does have a baseline of Alzheimer's dementia as a diagnosis but her behavior has never deteriorated to this level. She does have a history of garbled speech and confusion in the past associated with TIA. She is a delirium of uncertain etiology that has not responded to treatment in the emergency room. Due to this delirium she is unable to do the basic things that she is always done such as feeding herself, staying hydrated, etc. I have discussed with with her DPOA and son who lives in [place]. While her daughter lives in [place], and is involved by picking her up and helping in her home, son says it's easier to get a hold of him and not his sister. Plan: Consider lumbar puncture She does not meet criteria for Covid treatment and as such we will hold off on that Supportive care with IV fluids, antiemetics, antipyretics ASA (2) COVID Conclusion/Plan: This patient has had symptoms for 2 weeks. As such "greater than 7 days" which is the window of opportunity for using remdesivir and steroids. As such she is not a candidate. Plan: Supportive care with IV fluids and hydration as needed. Oxygen as needed. (3) Hypertension Conclusion/Plan: she takes amlodipine and lisinopril and I will resume those. Qualifiers: Hypertension type: primary hypertension Qualified Code(s): I10 - Essential (primary) hypertension (4) History of TIA (transient ischemic attack) Conclusion/Plan: This may be the cause of her garbled speech and confusion. While not completely similar to her previous episodes in 2018, it is a possibility. As such the aspirin has been added. She will be continued on a statin. And I will resume her blood pressure medicines. Also will order an MRI for the morning. - Lab Results Lab results reviewed: Yes Fish Bones: 04/07/21 05:24 04/07/21 05:24 - Diagnostic Imaging Results Diagnostic Imaging Results: positive: Final report reviewed Core Measures - Anticipated LOS I expect patient to be DC'd or transferred within 96 hours.: Yes - DVT/VTE - Prophylaxis VTE/DVT Device ordered at admit?: Yes
[2021-04-06] MEDS ORDERED: SODIUM CHLORIDE 0.9% 1,000 ML IV SCH (18:00)
[2021-04-06] MEDS: ENOXAPARIN 40 MG/0.4 ML SYRINGE SUBQ SCH (18:09)
[2021-04-07] MEDS: SODIUM CHLORIDE FLUSH 0.9% 10 ML SYRINGE IVP SCH ×2 (01:52→08:20)
[2021-04-07 05:58] LABS: BASOPHILS % (AUTO) 0.5 %; EOSINOPHILS # (AUTO) 0.1 10^3/uL (0.0-0.7); EOSINOPHILS % (AUTO) 1.2 %; HCT - HEMATOCRIT 37.4 % (37.0-47.0); HGB - HEMOGLOBIN 12.7 g/dL (12.0-16.0); LYMPHOCYTES # (AUTO) 1.7 10^3/uL (1.5-3.5); LYMPHOCYTES % (AUTO) 22.8 %; MEAN CORPUSCULAR HEMOGLOBIN 31.3 pg (27.0-31.0); MEAN CORPUSCULAR VOLUME 92.1 fL (81.0-99.0); MEAN PLATELET VOLUME 9.1 fL (7.9-10.8); MONOCYTES % (AUTO) 13.9 %; NEUTROPHILS # (AUTO) 4.5 10^3/uL (1.5-6.6); NEUTROPHILS % (AUTO) 61.1 %; PLT - PLATELET COUNT 374 10^3/uL (130-450); RED BLOOD COUNT 4.06 10^6/uL (4.20-5.40); RED CELL DISTRIBUTION WIDTH 12.2 % (12.0-15.0); WHITE BLOOD COUNT 7.3 x10^3/uL (4.8-10.8)
[2021-04-07 06:14] LABS: CALCIUM 8.8 mg/dL (8.5-10.3); CREATININE 0.5 mg/dL (0.4-1.0); POTASSIUM 3.5 mmol/L (3.5-5.0)
[2021-04-07] MEDS: ENOXAPARIN 40 MG/0.4 ML SYRINGE SUBQ SCH (08:18)
[2021-04-07] MEDS ORDERED: ASPIRIN EC 81 MG TABLET PO SCH (09:00)
[2021-04-07] MEDS ORDERED: amLODIPine 5 MG TABLET PO SCH (09:00)
[2021-04-07] MEDS ORDERED: lisinopriL 5 MG TABLET PO SCH (09:00)
--- NOTE | 2021-04-07 09:21 | Discharge Plan ---
Discharge Plan Problem Reviewed?: Yes Disposition: Home, Self Care Condition: Fair Prescriptions: Clopidogrel [Plavix] 75 mg PO DAILY #21 tablet Diet: Regular Activity Restrictions: Activity as Tolerated Shower Restrictions: No Driving Restrictions: Yes (no driving) Health Concerns: You became suddenly confused at home. You could not figure out how to use the phone. So you called her son in [place] and he called 911. When the ambulance people got to your door you could not figure out how to open the door. In our emergency room you had high blood pressure, but you did not have paralysis of any side of your body. You were confused in your speech was normal except you could not find her words sometimes. CT of your head was normal. You have a previous history of 2 transient ischemic attacks in 2018 and take 1 aspirin a day. We think, overall, when you were more awake the next day that you had another TIA. Your speech was now normal. And you were able to tell me that you had left body weakness. Plan of Treatment: 1. We would like you to take a blood thinner for the next 21 days. You will take aspirin and Plavix only for those 21 days and then stop the Plavix. These are very potent drugs with thinning your blood so if you fall, or hit your head, or start having headaches, blurred vision you need to call your doctor right away. 2. I would like to respectfully ask you to start thinking about your future with regards to living alone. If you could please consider having people come over to your house, or living in an assisted living facility, or having a little bit more structure in your life that would be much safer for you. Care Goals: To remain independent for as long as possible without having a stroke. Assessment: Patient is alert, oriented, eating breakfast, feels back to baseline and would like to go home No Smoking: If you smoke, Please STOP! Call for help.
[2021-04-07] MEDS ORDERED: CLOPIDOGREL 300 MG TABLET PO ONE (09:23)
--- NOTE | 2021-04-07 10:47 | Discharge Plan ---
Discharge Plan Problem Reviewed?: Yes Disposition: Home, Self Care Condition: Fair Prescriptions: Clopidogrel [Plavix] 75 mg PO DAILY #21 tablet Diet: Regular Activity Restrictions: Activity as Tolerated Shower Restrictions: No Driving Restrictions: Yes (NO DRIVING) Assistance Devices: Walker Health Concerns: You became suddenly confused at home. You could not figure out how to use the phone. So you called her son in [place] and he called 911. When the ambulance people got to your door you could not figure out how to open the door. In our emergency room you had high blood pressure, but you did not have paralysis of any side of your body. You were confused in your speech was normal except you could not find her words sometimes. CT of your head was normal. You have a previous history of 2 transient ischemic attacks in 2018 and take 1 aspirin a day. We think, overall, when you were more awake the next day that you had another TIA. Your speech was now normal. And you were able to tell me that you had left body weakness. Plan of Treatment: 1. We would like you to take a blood thinner for the next 21 days. You will take aspirin and Plavix only for those 21 days and then stop the Plavix. These are very potent drugs with thinning your blood so if you fall, or hit your head, or start having headaches, blurred vision you need to call your doctor right away. 2. I would like to respectfully ask you to start thinking about your future with regards to living alone. If you could please consider having people come over to your house, or living in an assisted living facility, or having a little bit more structure in your life that would be much safer for you. 3. You are unsteady on your feet. While you were in the hospital you were losing your balance just getting to the bathroom. You tell me that that is what you usually do when you get up too suddenly at home. Please make sure you take your time getting up and being steady. Physical Therapy did see you and they do not recommend a walker. Care Goals: To remain independent for as long as possible without having a stroke. Assessment: Patient is alert, oriented, eating breakfast, feels back to baseline and would like to go home No Smoking: If you smoke, Please STOP! Call for help. Follow-up with: Paola Belle MD [Provider Admit Priv/Credential] -
--- NOTE | 2021-04-07 10:53 | DISCHARGE SUMMARY ---
Discharge Summary Admit Date: 04/06/21 Discharge Date: 04/07/21 Discharging Provider: Gisela Dunaway MD Primary Care Provider: Paola Belle MD Code Status: Do Not Attempt Resuscitation Condition at Discharge: Fair Discharge Disposition: 01 Home, Self Care - DIAGNOSES Discharge Diagnoses with Status of Each Condition: 1. TIA 2. Positive Covid status without symptoms 3. Hypertension 4. Mild to moderate dementia 5. Covid Positive without symptoms - HPI History of Present Illness: This is an elderly female whose past medical history is that of transient ischemic attacks. A March 2017 episode consisted of garbled speech and confusion and she was brought into the hospital. She then had another episode in May 2017 where her left face felt numb and the left part of her tongue felt numb. Forgetful for years but family disagrees on how bad for for how long. As an example of what she is forgetting the only thing they could say for sure is constant misplacing of items. She stayed w her son in [place] for 2.5 months at the end of 2020 and they would spend up to 2 hours looking for purses, leashes, keys that she misplaced. But she knows where she is, knows who people are and doesn't get lost. Son feels she is still "fine" but reluctantly states she is just forgetting more in the last few months. It's been going on for years, just worse. EMS was called by son in [place] when mom was just not improving over the course of the day. The patient knows that she is confused. That is when she tried to call 911 on her own and could not do it. So she called her son. He called EMS. She also could not let EMS in to her front door because couldn't figure out how to open it. In the ER, Temperature was 36. Blood pressure 170/82. 98% on room air. 20 respiratory rate. 82 heart rate. There is no antecedent history of fever, chills, sore throat, But she has had a runny nose, and mild symptoms of a cold. Some sinus congestion. That is been going on for 2 weeks. There is no sudden visual change. There is no cough, chest congestion. There is no urgency, frequency, dysuria. There is no abdominal pain. There is no change in bowel habits. Gluten intolerant and if she doesn't eat right she gets confused. There has been no recent change in medications.On examination she was hypertensive. Well-nourished well-developed. Alert and conversant but confused. She had some dry mucous membranes. But cranial nerves were intact. Lungs had diminished breath sounds but were clear and she did not have respiratory distress. Other than confusion there were no other findings on neurological exam. She had normal speech, followed commands and had no focal deficits. EKG was sinus rhythm. CBC was normal. CMP was essentially normal as well. She was Covid positive on PCR. And chest x-ray has early mild diffuse basilar interstitial pulmonary opacities. Head CT has no acute intracranial processes. On the basis of her delirium, the patient will be placed in observation. - Past Medical History Cardiovascular: reports: Hypertension Respiratory: reports: None Neuro: reports: Dementia (forget where she puts stuff, misplaced things. Auto pay so no bill problems), TIA (CT angiogram in March 2017 had no evidence for large vessel occlusion or aneurysm of head or neck. CT of head in March and May of that year had no acute intracranial processes identified. She had presumed small vessel ischemic changes. There has been no MRI in the EMR noted.), Migraines Endocrine/Autoimmune: reports: None GI: reports: Chronic diarrhea (if eats wrong food), Other (gluten intolerance.) MEDICAID ANALYST: reports: Other () : reports: Incontinence, Frequency HEENT: reports: Chronic vision loss (wears glasses) Psych: reports: None Musculoskeletal: reports: Osteoarthritis Derm: reports: None MRSA Hx?: No - Past Surgical History General: reports: Appendectomy Ortho: reports: Other /MEDICAID ANALYST: reports: Hysterectomy - CONSULTS | PROCEDURES Procedures: 1. Chest x-ray with mild atypical pneumonia manifested as diffuse bibasilar predominant interstitial pulmonary opacities 2. CT of head without acute intracranial abnormality - HOSPITAL COURSE Hospital Course: At presentation the patient recognize that she was confused, having problems with her words. But unable to articulate a full story. Overnight, with ob servation, she gradually returned to baseline. On the morning of discharge she states that she felt like she was having another TIA. She has dense numbness in her left arm that was making her more more frightened. But no paralysis. The more she tried to massage her arm, tried to use her arm, the more confused she got and she could not find her words. She now feels back to normal. No chest pain. No shortness of breath. We discussed the fact that she had 2 previous episodes of TIAs. Her ABCD score is 5 points.However, this mary lady is forgetful. At 86 years of age I think her judgment is slightly impaired with regards to safety. I recommended to the son that she be formally evaluated for possibly living in an assisted living facility or that she get regular safety checks in her home. He lives in [place]. While his sister does live down the road, she is not always available to check on her mom. The patient states that her daughter has her own health problems and sometimes does not get out of bed till after noon. Maybe she will start asking her granddaughter to check in on her.I have also asked for a DMV form. This patient is still driving. And while she still may be will do so, I suspect that slow reflexes and cognitive impairment is a barrier to safe driving. I will asked the DMV to do a driving test on her. Discharge exam has a temperature of 37. Heart rate 64. Blood pressure 148/62. Respirations 18. 96% on room air. She is 5 foot tall, 2 inches. 62 kg weight. She is alert, oriented, lucid speech, sequential speech, and able to follow commands. She was evaluated by physical therapy and she is a slight fall risk but she refuses a walker and physical therapy concurs because she would probably get more risk of falling with the equipment. Lungs are clear to auscultation and percussion. PMI is normally placed. Regular rate and rhythm. Abdomen is soft, nontender, no masses, normal bowel sounds. Extremities are without edema. Cranial nerve exam, strength testing, and ability to stand are normal for a lady her age. Because of her the ABCD score of 5 points, she would be candidate for dual platelet therapy. I do worry about her living alone and I share that concern with her son in [place]. She should be on Plavix and aspirin for 21 days. We allowed her blood pressure to stay a little on the high side for permissive hypertension. Within the next day or so her primary care provider should strive to get her down below 140 on a regular basis. I have asked her to see her primary care provider in the next week. She is close to 2 weeks beyond her initial Covid symptoms. Although she is Covid positive she does not have hypoxia, or need for antibiotics/remdesivir. I am asking her primary care provider to consider doing an echocardiogram and an MRI with angiogram. She has had CTs of the head, previous echoes and carotid Dopplers with no significant findings. - ALLERGIES Allergies/Adverse Reactions: Allergies Allergy/AdvReac Type Severity Reaction Status Date / Time gluten Allergy Severe Celiac Verified 04/06/21 13:12 disease Penicillins Allergy Unknown Verified 03/13/17 15:31 - MEDICATIONS Home Medications: Ambulatory Orders Medication Instructions Recorded Confirmed Aspirin EC [Ecotrin] 325 mg PO DAILY #30 tablet 05/21/17 07/26/20 Amlodipine Besylate [Norvasc] 2.5 mg PO DAILY 07/26/20 04/07/21 Ascorbic Acid [Vitamin C] 1 - 2 each PO DAILY 07/26/20 07/26/20 Cholecalciferol [Vitamin D3] 1 cap PO DAILY 07/26/20 07/26/20 lisinopriL [Prinivil] 10 mg PO DAILY 07/26/20 04/07/21 Aspirin EC [Ecotrin] 81 mg PO DAILY tablet 04/07/21 Clopidogrel [Plavix] 75 mg PO DAILY #21 tablet 04/07/21 - LABS Result Diagrams: 04/07/21 05:24 04/07/21 05:24
[2021-04-07 13:50] VITALS: BP 154/65
== END 2021-04-07 13:40 | disposition home or self-care (01) ==
LOC: EDUNIT# → ED 13:06 → MS2 17:15
PROVIDERS: ADMIT Specialist; ATTEND Specialist
DX: G45.9 Transient cerebral ischemic attack, unspecified (principal); U07.1 COVID-19; J12.82 Pneumonia due to coronavirus disease 2019; F03.90 Unspecified dementia, unspecified severity, without behavioral disturbance, psychotic disturbance, mood disturbance, and anxiety; E86.0 Dehydration; I10 Essential (primary) hypertension; I45.10 Unspecified right bundle-branch block; M19.90 Unspecified osteoarthritis, unspecified site; K52.9 Noninfective gastroenteritis and colitis, unspecified; K90.41 Non-celiac gluten sensitivity; R32 Unspecified urinary incontinence; R35.0 Frequency of micturition; Z66 Do not resuscitate; Z79.82 Long term (current) use of aspirin; Z79.899 Other long term (current) drug therapy; Z88.0 Allergy status to penicillin; Z90.710 Acquired absence of both cervix and uterus
CPT/HCPCS: 36415; 70450; 71045; 80048; 80053; 81003; 83605; 83690; 85025; 87040; 87631; 93005; 96361; 96365; 96367; 96372; 97161; 99284; 99285; A9270; G0378; J1650; 0202U; 81001; 87086

== ENCOUNTER 2021-06-01 16:23 | Emergency (ER) | payer MEDICARE, OTHER ==
[2021-06-01 16:52] LABS: BASOPHILS # (AUTO) 0.1 10^3/uL (0.0-0.1); BASOPHILS % (AUTO) 1.2 %; EOSINOPHILS # (AUTO) 0.3 10^3/uL (0.0-0.7); HCT - HEMATOCRIT 42.8 % (37.0-47.0); HGB - HEMOGLOBIN 14.3 g/dL (12.0-16.0); LYMPHOCYTES # (AUTO) 3.4 10^3/uL (1.5-3.5); LYMPHOCYTES % (AUTO) 37.7 %; MEAN CORPUSCULAR HEMOGLOBIN 31.2 pg (27.0-31.0); MEAN CORPUSCULAR HGB CONC 33.4 g/dL (32.0-36.0); MEAN CORPUSCULAR VOLUME 93.4 fL (81.0-99.0); MEAN PLATELET VOLUME 9.1 fL (7.9-10.8); MONOCYTES # (AUTO) 1.3 10^3/uL (0.0-1.0); MONOCYTES % (AUTO) 14.8 %; NEUTROPHILS # (AUTO) 3.8 10^3/uL (1.5-6.6); NEUTROPHILS % (AUTO) 42.9 %; PLT - PLATELET COUNT 406 10^3/uL (130-450); RED BLOOD COUNT 4.58 10^6/uL (4.20-5.40); RED CELL DISTRIBUTION WIDTH 12.6 % (12.0-15.0)
[2021-06-01 16:58] LABS: PT - PROTHROMBIN TIME 10.6 secs (9.9-12.6)
--- NOTE | 2021-06-01 17:04 | XRAY Report ---
PROCEDURE: Chest 1 View X-Ray INDICATIONS: Chest Pain TECHNIQUE: One view of the chest was acquired. COMPARISON: Single view the chest dated 04/06/2021 FINDINGS: Surgical changes and devices: None. Lungs and pleura: There is diffuse interstitial prominence, slightly decreased when compared with the study dated 04/06/2021. No pleural effusion or pneumothorax. Mediastinum: Mediastinal contours appear normal. Heart size is normal. Bones and chest wall: No suspicious bony lesions. Overlying soft tissues appear unremarkable. IMPRESSION: Increased interstitial prominence suggesting fluid overload. There has been partial interval diuresis when compared with the study dated 04/06/2021. Reviewed by: Belle Curiel MD on 06/01/2021 5:03 PM PDT Approved by: Belle Curiel MD on 06/01/2021 5:03 PM PDT Station ID: [id number]
[2021-06-01 17:07] LABS: ALBUMIN 4.2 g/dL (3.2-5.5); ALBUMIN/GLOBULIN RATIO 1.1 (1.0-2.2); BILIRUBIN,TOTAL 0.6 mg/dL (0.2-1.0); CALCIUM 9.7 mg/dL (8.5-10.3); CREATININE 0.6 mg/dL (0.4-1.0); POTASSIUM 4.1 mmol/L (3.5-5.0); TOTAL PROTEIN 8.2 g/dL (6.7-8.2)
--- NOTE | 2021-06-01 17:16 | CT Report ---
PROCEDURE: HEAD WO INDICATIONS: acute confusion TECHNIQUE: Noncontrast 4.5 mm thick angled axial sections acquired from the foramen magnum to the vertex. For r adiation dose reduction, the following was used: automated exposure control, adjustment of mA and/or kV according to patient size. COMPARISON: Head CT 04/06/2021. FINDINGS: Image quality: Excellent. CSF spaces: Basal cisterns are patent. No extra-axial fluid collections. Ventricles are normal in size and shape. Brain: No midline shift. No intracranial masses or hemorrhage. No area of hypodensity in a large va scular distribution to suggest acute infarction. Periventricular hypodensity. Skull and face: Calvarium and visualized facial bones are intact, without suspicious lesions. Sclera l bands. Sinuses: Visualized sinuses and mastoids are clear. IMPRESSION: No acute intracranial abnormality. Chronic microvascular ischemic disease. Reviewed by: Kulwinder Sullivan MD on 06/01/2021 5:15 PM PDT Approved by: Kulwinder Sullivan MD on 06/01/2021 5:15 PM PDT Station ID: [id number]
--- NOTE | 2021-06-01 17:58 | ED Physician Documentation ---
PD HPI ALTERED MENTAL STATUS - Stated complaint Stated Complaint: CONFUSION/HEADACHE/BLURRY VISION - Chief complaint Chief Complaint: Neuro - History obtained from History obtained from: Patient - History of Present Illness Timing - onset: Enter time (1300), Today Timing - duration: Days (from the patient 2 days) Timing - details: Gradual onset, Still present Quality / character: Less responsive, Confused Associated symptoms: Headache, General weakness. No: Fever, Stiff neck, Dyspnea, Cough, NVD, Urinary sx, Focal weakness, Seizure activity, Syncope Contributing factors: No: Anticoagulated Basline status: Alert and oriented X 3, Ambulatory, Independent Similar symptoms before: Diagnosis (tia, dehydration, covid pneumonia) Recently seen: Admitted - Additional information Additional information: 86-year-old female presents today with her son with a chief complaint of acute confusion. She was on a walk with him at 1:00 in the afternoon and she became confused. She is having some trouble getting her words out. She has had this happen previously a number of times. She has mostly recently been admitted into the hospital for delirium with illness of COVID-19. She did not get hypoxic with that. She was dehydrated on that admission. 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: Other : Incontinence, Frequency HEENT: Chronic vision loss Psych: None Musculoskeletal: Osteoarthritis Derm: None - Past Surgical History Past Surgical History: Yes General: Appendectomy Ortho: Other /[employer]ES [employer]SULTANT: Hysterectomy - Present Medications Home Medications: Ambulatory Orders Medication Instructions Recorded Confirmed Aspirin EC [Ecotrin] 325 mg PO DAILY #30 tablet 05/21/17 07/26/20 Amlodipine Besylate [Norvasc] 2.5 mg PO DAILY 07/26/20 04/07/21 Ascorbic Acid [Vitamin C] 1 - 2 each PO DAILY 07/26/20 07/26/20 Cholecalciferol [Vitamin D3] 1 cap PO DAILY 07/26/20 07/26/20 lisinopriL [Prinivil] 10 mg PO DAILY 07/26/20 04/07/21 Aspirin EC [Ecotrin] 81 mg PO DAILY tablet 04/07/21 Clopidogrel [Plavix] 75 mg PO DAILY #21 tablet 04/07/21 - Allergies Allergies/Adverse Reactions: Allergies Allergy/AdvReac Type Severity Reaction Status Date / Time gluten Allergy Severe Celiac Verified 06/01/21 16:40 disease Penicillins Allergy Unknown Verified 06/01/21 16:40 - Social History Does the pt smoke?: No Smoking Status: Never smoker Does the pt drink ETOH?: No Does the pt have substance abuse?: No - Immunizations Immunizations are current?: Yes - POLST Patient has POLST: No POLST Status: DNR (this is her wish and I shared that with her son) PD ED PE NORMAL - Vitals Vital signs reviewed: Yes (Hypertensive) - General General: No acute distress, Well developed/nourished, Other (The patient is alert and interactive but confused she does have some hard of hearing.) - HEENT HEENT: Atraumatic, PERRL, EOMI - Neck Neck: Supple, no meningeal sign, No bony TTP - Cardiac Cardiac: RRR, No murmur - Respiratory Respiratory: No respiratory distress, Clear bilaterally - Abdomen Abdomen: Normal bowel sounds, Soft, Non tender, Non distended, No organomegaly - Back Back: No CVA TTP, No spinal TTP - Derm Derm: Normal color, Warm and dry, No rash - Extremities Extremities: No deformity, No edema - Neuro Neuro: Alert and oriented X 3, sound recordist 2-12 intact, No motor deficit, No sensory deficit, Normal speech Eye Opening: Spontaneous Motor: Obeys Commands Verbal: Oriented GCS Score: 15 - Psych Psych: Normal mood, Normal affect Results - Vitals Vitals: Vital Signs - 24 hr 06/01/21 06/01/21 06/01/21 16:36 16:45 17:23 Temperature 36.8 C 36.5 C Heart Rate 79 83 78 Respiratory 16 13 15 Rate Blood Pressure 190/96 H 196/96 H 195/94 H O2 Saturation 97 97 100 06/01/21 06/01/21 06/01/21 17:37 18:01 19:07 Temperature Heart Rate 75 75 76 Respiratory 11 L 13 12 Rate Blood Pressure 191/86 H 182/87 H 190/86 H O2 Saturation 96 100 97 06/01/21 06/01/21 06/01/21 19:30 20:00 20:30 Temperature 36.9 C Heart Rate 74 92 87 Respiratory 16 20 20 Rate Blood Pressure 170/74 H 169/94 H 176/118 H O2 Saturation 96 96 97 06/01/21 06/01/21 06/01/21 21:12 21:30 22:00 Temperature Heart Rate 94 90 104 H Respiratory 18 14 19 Rate Blood Pressure 163/101 H 148/109 H 157/100 H O2 Saturation 94 96 95 06/01/21 06/01/21 06/01/21 22:18 22:42 22:50 Temperature Heart Rate 98 101 H 110 H Respiratory 20 19 19 Rate Blood Pressure 212/117 H 186/95 H 203/105 H O2 Saturation 98 97 97 06/01/21 06/01/21 06/01/21 22:56 23:03 23:04 Temperature Heart Rate 109 H 110 H 112 H Respiratory 18 18 15 Rate Blood Pressure 204/155 H 204/103 H 190/175 H O2 Saturation 95 98 95 06/01/21 23:18 Temperature Heart Rate 105 H Respiratory 18 Rate Blood Pressure 166/129 H O2 Saturation 95 Oxygen O2 Source Room air - EKG (time done) 1633 Rate: Rate (enter#) (81) Intervals: Wide QRS, RBBB Ischemia: Normal ST segments Compare to prior EKG: Unchanged from prior EKG (SPT 04-06-21 no changes) Computer interpretation: Agree with computer - Labs Labs: Laboratory Tests 06/01/21 06/01/21 06/01/21 16:45 16:47 16:47 WBC 9.0 RBC 4.58 Hgb 14.3 Hct 42.8 MCV 93.4 MCH 31.2 H MCHC 33.4 RDW 12.6 Plt Count 406 MPV 9.1 Neut # (Auto) 3.8 Lymph # (Auto) 3.4 Mcintosh # (Auto) 1.3 H Eos # (Auto) 0.3 Baso # (Auto) 0.1 Absolute Nucleated RBC 0.00 Nucleated RBC % 0.0 PT 10.6 INR 1.0 Sodium Potassium Chloride Carbon Dioxide Anion Gap BUN Creatinine Estimated GFR (MDRD) Glucose POC Whole Bld Glucose 101 H Calcium Total Bilirubin AST ALT Alkaline Phosphatase Troponin I High Sens Total Protein Albumin Globulin Albumin/Globulin Ratio Lipase Urine Color Urine Clarity Urine pH Ur Specific [place] Urine Protein Urine Glucose (UA) Urine Ketones Urine Occult Blood Urine Nitrite Urine Bilirubin Urine Urobilinogen Ur Leukocyte Esterase Ur Microscopic Review Urine Culture Comments Nasal Adenovirus (PCR) Nasal B. parapertussis DNA (PCR) Nasal Coronavir 229E PCR Nasal Coronavir HKU1 PCR Nasal Coronavir NL63 PCR Nasal Coronavir OC43 PCR Nasal Enterovir/Rhinovir PCR Nasal Influenza B PCR Nasal Influenza A PCR Nasal Parainfluen 1 PCR Nasal Parainfluen 2 PCR Nasal Parainfluen 3 PCR Nasal Parainfluen 4 PCR Nasal RSV (PCR) Nasal B.pertussis DNA PCR Nasal C.pneumoniae (PCR) Papo Human Metapneumo PCR Nasal M.pneumoniae (PCR) Nasal SARS-CoV-2 (PCR) 06/01/21 06/01/21 06/01/21 16:47 16:47 20:18 WBC RBC Hgb Hct MCV MCH MCHC RDW Plt Count MPV Neut # (Auto) Lymph # (Auto) Mcintosh # (Auto) Eos # (Auto) Baso # (Auto) Absolute Nucleated RBC Nucleated RBC % PT INR Sodium 133 L Potassium 4.1 Chloride 97 L Carbon Dioxide 25 Anion Gap 11.0 BUN 19 Creatinine 0.6 Estimated GFR (MDRD) 95 Glucose 100 POC Whole Bld Glucose Calcium 9.7 Total Bilirubin 0.6 AST 36 ALT 29 Alkaline Phosphatase 78 Troponin I High Sens 11.2 Total Protein 8.2 Albumin 4.2 Globulin 4.0 Albumin/Globulin Ratio 1.1 Lipase 47 Urine Color LIGHT YELLOW Urine Clarity CLEAR Urine pH 7.5 Ur Specific [place] 1.010 Urine Protein NEGATIVE Urine Glucose (UA) NEGATIVE Urine Ketones NEGATIVE Urine Occult Blood NEGATIVE Urine Nitrite NEGATIVE Urine Bilirubin NEGATIVE Urine Urobilinogen 0.2 (NORMAL) Ur Leukocyte Esterase NEGATIVE Ur Microscopic Review NOT INDICATED Urine Culture Comments NOT INDICATED Nasal Adenovirus (PCR) Nasal B. parapertussis DNA (PCR) Nasal Coronavir 229E PCR Nasal Coronavir HKU1 PCR Nasal Coronavir NL63 PCR Nasal Coronavir OC43 PCR Nasal Enterovir/Rhinovir PCR Nasal Influenza B PCR Nasal Influenza A PCR Nasal Parainfluen 1 PCR Nasal Parainfluen 2 PCR Nasal Parainfluen 3 PCR Nasal Parainfluen 4 PCR Nasal RSV (PCR) Nasal B.pertussis DNA PCR Nasal C.pneumoniae (PCR) Papo Human Metapneumo PCR Nasal M.pneumoniae (PCR) Nasal SARS-CoV-2 (PCR) 06/01/21 20:43 WBC RBC Hgb Hct MCV MCH MCHC RDW Plt Count MPV Neut # (Auto) Lymph # (Auto) Mcintosh # (Auto) Eos # (Auto) Baso # (Auto) Absolute Nucleated RBC Nucleated RBC % PT INR Sodium Potassium Chloride Carbon Dioxide Anion Gap BUN Creatinine Estimated GFR (MDRD) Glucose POC Whole Bld Glucose Calcium Total Bilirubin AST ALT Alkaline Phosphatase Troponin I High Sens Total Protein Albumin Globulin Albumin/Globulin Ratio Lipase Urine Color Urine Clarity Urine pH Ur Specific [place] Urine Protein Urine Glucose (UA) Urine Ketones Urine Occult Blood Urine Nitrite Urine Bilirubin Urine Urobilinogen Ur Leukocyte Esterase Ur Microscopic Review Urine Culture Comments Nasal Adenovirus (PCR) NOT DETECTED Nasal B. parapertussis DNA (PCR) NOT DETECTED Nasal Coronavir 229E PCR NOT DETECTED Nasal Coronavir HKU1 PCR NOT DETECTED Nasal Coronavir NL63 PCR NOT DETECTED Nasal Coronavir OC43 PCR NOT DETECTED Nasal Enterovir/Rhinovir PCR NOT DETECTED Nasal Influenza B PCR NOT DETECTED Nasal Influenza A PCR NOT DETECTED Nasal Parainfluen 1 PCR NOT DETECTED Nasal Parainfluen 2 PCR NOT DETECTED Nasal Parainfluen 3 PCR NOT DETECTED Nasal Parainfluen 4 PCR NOT DETECTED Nasal RSV (PCR) NOT DETECTED Nasal B.pertussis DNA PCR NOT DETECTED Nasal C.pneumoniae (PCR) NOT DETECTED Papo Human Metapneumo PCR NOT DETECTED Nasal M.pneumoniae (PCR) NOT DETECTED Nasal SARS-CoV-2 (PCR) NOT DETECTED - Rads (name of study) CT head Radiology: Prelim report reviewed (Impression: No acute intracranial abnormality. Chronic microvascular ischemic disease.), EMP read indepedently, See rad report Chest Radiology: Prelim report reviewed (Impression: Increased interstitial prominence suggestive suggesting fluid overload. There has been partial interval diuresis when compared to the study dated 04/06/2021), EMP read indepedently, See rad report Procedures - IVC sono (time) 1825 Bedside IVC sono: IVC measures (cm) (0.64), Significant dehydration (est 2-3 liter deficit) PD MEDICAL DECISION MAKING - ED course Complexity details: reviewed old records, reviewed results, re-evaluated patient, considered differential, d/w patient, d/w family ED course: 86-year-old female with a history of prior TIAs presents today with acute confusion and is found to be dehydrated. She is administered intravenous saline. She is not able to give much history for review of systems. The son is here and he is an adequate historian. The patient has improvement in symptoms and at shift change urinalysis is pending and care is turned over to Dr. Mariee. The patient suffers a catstrophic stroke in the bathroom while attempting to provide a sample and is cared for by Dr. Mariee with a large vessel occlusion and transfer to [facility]. She is administered tPA. She has some improvement prior to transfer or administration of tPA. CTA head: Impression: 1. Short segment occlusion or high-grade stenosis involving the M2 segment of the right middle cerebral artery. 2. No different intracranial hematoma collections or mass-effect. 3. Moderate cerebral volume loss and chronic white matter small vessel ischemic changes. This patient has had similar episodes previously in the same distribution. Departure - Departure Disposition: 02 Transfer Acute Care Hosp Clinical Impression: Dehydration, Left-sided weakness, Expressive aphasia Cerebrovascular accident (CVA) Qualifiers: CVA mechanism: occlusion Precerebral and cerebral artery: middle cerebral artery Laterality of affected vessel: right Qualified Code(s): I63.511 - Cerebral infarction due to unspecified occlusion or stenosis of right middle cerebral artery Condition: Serious Follow-Up: Paola Belle MD [Primary Care Provider] - Discharge Date/Time: 06/01/21 23:44
[2021-06-01] MEDS ORDERED: SODIUM CHLORIDE 0.9% 1,000 ML IV STA ×2 (18:33→20:28)
[2021-06-01 20:44] LABS: BILIRUBIN,URINE NEGATIVE (NEGATIVE); GLUCOSE, URINE (UA) NEGATIVE (NEGATIVE); KETONES,URINE (UA) NEGATIVE (NEGATIVE); LEUKOCYTE ESTERASE, URINE NEGATIVE (NEGATIVE); NITRITE,URINE NEGATIVE (NEGATIVE); OCCULT BLOOD,URINE NEGATIVE (NEGATIVE); PH,URINE 7.5 PH (5.0-7.5); PROTEIN,URINE NEGATIVE (NEGATIVE); UROBILINOGEN,URINE 0.2 (NORMAL) E.U./dL (NORMAL)
[2021-06-01 20:46] LABS: CLARITY,URINE CLEAR (CLEAR)
[2021-06-01] MEDS ORDERED: IOVERSOL 320 100 ML VIAL IVP ONE ×2 (20:51→23:10)
[2021-06-01] MEDS ORDERED: MORPHINE 2 MG/ML CARPUJECT IVP STA ×2 (21:01→22:22)
--- NOTE | 2021-06-01 21:53 | CT Report ---
PROCEDURE: ANGIO HEAD W/WO INDICATIONS: L sided facial droop CONTRAST: IV CONTRAST: Optiray 320 ml: 100 PO CONTRAST: *NO PO CONTRAST TECHNIQUE: After the administration of intravenous contrast, 1 mm thick sections acquired through the [place] of [place]. Postcontrast 4.5 mm thick sections then re-acquired from the foramen magnum to the vertex. 3-dimensional osvpavg-hjirjmlzc-nazaoniuzw (MIP) and/or volume rendering reformats were acquired of t he central intracranial vasculature. For radiation dose reduction, the following was used: automate d exposure control, adjustment of mA and/or kV according to patient size. COMPARISON: CT head 06/01/2021, 04/06/2021, CT angiogram head 03/15/2017, carotid ultrasound 03/15/2017. FINDINGS: Image quality: There is extensive streak artifact limiting evaluation. Anterior circulation: Intracranial internal carotid arteries are patent bilaterally. The paired an terior cerebral arteries are patent bilaterally. The anterior communicating artery is patent. There is a filling defect within the M2 segment of the right middle cerebral artery with associated segment al occlusion or high-grade stenosis of approximately 1.5 cm in length. There is subsequent reconstitu tom flow along the right insular cortex. The left middle cerebral artery appears patent. Posterior circulation: Visualized portions of the vertebral arteries appear patent and join to form a patent basilar artery. The posterior cerebral arteries are patent bilaterally. No high-grade steno sis, occlusion, or discrete filling defects. No cerebral aneurysm identified. CSF spaces: There is moderate cerebral volume loss with prominence of the ventricles and sulci. Basa l cisterns are patent. No extra-axial fluid collections. Brain: No intracranial hematoma collections, mass, or mass effect. Gutierrez-white matter interface is pr eserved. There are subcortical and periventricular white matter hypodensities consistent with moderat e chronic small vessel ischemic changes. Skull and face: Calvarium and facial bones appear intact, without suspicious lesions. Sinuses: Visualized sinuses and mastoids are clear. IMPRESSION: 1. Short segment occlusion or high-grade stenosis involving the M2 segment of the right middle cerebr al artery. 2. No definite intracranial hematoma collections or mass effect. 3. Moderate cerebral volume loss and chronic white matter small vessel ischemic changes. Findings discussed with Dr. Mariee on 06/01/2021 at 9:45 PM. Reviewed by: Marco Mckeon MD on 06/01/2021 9:52 PM PDT Approved by: Marco Mckeon MD on 06/01/2021 9:52 PM PDT Station ID: [id number]
--- NOTE | 2021-06-01 22:03 | CT Report ---
PROCEDURE: ANGIO NECK W INDICATIONS: L sided facial droop, L neck pain CONTRAST: IV CONTRAST: Optiray 320 ml: 100 PO CONTRAST: *NO PO CONTRAST TECHNIQUE: After the administration of intravenous contrast, 1.5 mm axial sections acquired from the aortic arch to the [place] of [place]. Coronal 3-D maximum intensity projection (MIP) and/or volume rendering ref ormats were then performed. For radiation dose reduction, the following was used: automated exposur e control, adjustment of mA and/or kV according to patient size. COMPARISON: CTA head 06/01/2021, CT head 06/01/2021, CTA head 03/15/2017.. FINDINGS: Image quality: There is motion artifact limiting evaluation. Carotid system: The great vessels demonstrate a conventional anatomy as they arise from the aortic a rch. The origins of the common carotid arteries appear patent. The common carotid arteries demonstr ate normal calibers and courses. There is bilateral calcified plaque along the carotid bulbs with min imal narrowing of less than 25%. The subsequent internal carotid arteries demonstrate normal caliber and course. Within the visualized brain, there is a focal high-grade stenosis or occlusion within the M2 segment of the right middle cerebral artery which is better evaluated on the concurrent CTA of th e head. Posterior circulation: The origins of the vertebral arteries appear patent. The more superior porti ons of the vertebral arteries demonstrate normal course and caliber. They join to form a normal appe aring basilar artery. Soft tissues: Visualized neck and chest demonstrate bilateral scarring within the visualized lung ap ices. Bones: No suspicious bony lesions. Visualized cervical spine demonstrates postsurgical changes stat us post ACDF at C2-C4. IMPRESSION: 1. No high-grade stenosis or occlusion of the neck arteries. 2. Segmental high-grade stenosis or occlusion involving the M2 segment of the right middle cerebral a rtery. Recommend correlation with concurrent CTA of the head. The estimate of stenosis included in the report of the imaging study was calculated using the NASCET method Reviewed by: Marco Mckeon MD on 06/01/2021 10:02 PM PDT Approved by: Marco Mckeon MD on 06/01/2021 10:02 PM PDT Station ID: [id number]
[2021-06-01 22:17] LABS: B. PARAPERTUSSIS- RESP PCR PAN NOT DETECTED; B. PERTUSSIS- RESP PCR PANEL NOT DETECTED; C. PNEUMONIAE- RESP PCR PANEL NOT DETECTED; CORONAVIRUS 229E-RESP PCR NOT DETECTED; CORONAVIRUS HKU1-RESP PCR NOT DETECTED; CORONAVIRUS NL63-RESP PCR NOT DETECTED; CORONAVIRUS OC43-RESP PCR NOT DETECTED; HUMAN METAPNEUMOVIRUS NOT DETECTED; INFLUENZA A- RESP PCR PANEL NOT DETECTED; INFLUENZA B - RESP PCR PANEL NOT DETECTED; M. PNEUMONIAE- RESP PCR PANEL NOT DETECTED; PARAINFLUENZA VIRUS 1 NOT DETECTED; PARAINFLUENZA VIRUS 2 NOT DETECTED; PARAINFLUENZA VIRUS 3 NOT DETECTED; PARAINFLUENZA VIRUS 4 NOT DETECTED; RHINOVIRUS/ENTEROVIRUS NOT DETECTED; RSV- RESP PCR PANEL NOT DETECTED; SARS-CoV-2 -RESP PCR PANEL NOT DETECTED
[2021-06-01] MEDS ORDERED: ENALAPRILAT 1.25 MG/ML VIAL IVP STA ×2 (22:21→22:59)
[2021-06-01] MEDS ORDERED: LORazepam 2 MG/ML VIAL IVP STA (22:41)
--- NOTE | 2021-06-01 22:45 | ED Physician Documentation ---
ED Addendum - Addendum Addendum: 06/01/21 22:42The patient at approximately 825 has been seeming back to baseline according to her son and was conversant with nurses and moving all extremities and asked to go to the bathroom. She was walking well under her own volition. In the bathroom nursing heard falling sound in the patient was evaluated and was seen to be hemiparetic with weakness on the left and aphasic. No obvious signs of injury to the head with swelling or tenderness. She was in a somewhat semiseated position against the wall near the toilet. She was lifted up and brought back to the [facility] in her room. Evaluation showed a dense paresis on the left side with facial droop and aphasic. She was not able to follow commands. Gaze preference to the right. We did an emergent repeat head CT with angiography and this showed a occlusion or tight stenosis at the M2 segment on the right. I talked with stroke neurology who did a telestroke interview with the patient and her son. The patient's blood pressure had increased during that time and is now a bit elevated. We are giving IV medication for blood pressure and anxiety as she is quite fidgety with her right arm. The stroke neurologist did suggest giving TPA and she was talking to the interventional list about endovascular treatment.
[2021-06-01 23:19] VITALS: BP 166/129
[2021-06-01] MEDS ORDERED: WATER FOR INJECTION STERILE IV STA (23:24)
[2021-06-01] MEDS ORDERED: ALTEPLASE IV STA (23:24)
[2021-06-01] MEDS ORDERED: ALTEPLASE 100 MG VIAL ONE (23:41)
== END 2021-06-01 23:44 | disposition short-term general hospital (02) ==
LOC: ED 16:23
DX: I63.541 Cerebral infarction due to unspecified occlusion or stenosis of right cerebellar artery (principal); R47.01 Aphasia; G81.94 Hemiplegia, unspecified affecting left nondominant side; I10 Essential (primary) hypertension; E86.0 Dehydration; Z20.822 Contact with and (suspected) exposure to COVID-19
CPT/HCPCS: 36415; 70450; 70496; 70498; 71045; 80053; 81003; 83690; 84484; 85025; 85610; 87631; 93005; 96361; 96374; 96375; 96376; 99285; 99291; J2060; J2997; Q9967; 0202U; 81001; 87086

== ENCOUNTER 2021-06-21 04:08 | Outpatient (CLI) | payer MEDICARE, OTHER | END 2021-06-21 04:09 | disposition EMS.NT | LOC: EMS 04:08 | DX: R20.0 Anesthesia of skin (principal) ==

== ENCOUNTER 2021-09-26 06:31 | Outpatient (CLI) | payer MEDICARE, OTHER | END 2021-09-26 06:32 | disposition critical access hospital (66) | LOC: EMS 06:31 | DX: R46.89 Other symptoms and signs involving appearance and behavior (principal); R45.6 Violent behavior; R41.0 Disorientation, unspecified | CPT/HCPCS: A0425; A0429 ==

== ENCOUNTER 2021-09-26 06:52 | Emergency (ER) | payer MEDICARE, OTHER ==
[2021-09-26 06:59] VITALS: BP 167/94
[2021-09-26] MEDS ORDERED: OLANZapine ODT 5 MG TABLET TL STA (07:27)
[2021-09-26 08:06] LABS: BASOPHILS # (AUTO) 0.1 10^3/uL (0.0-0.1); BASOPHILS % (AUTO) 1.2 %; EOSINOPHILS # (AUTO) 0.1 10^3/uL (0.0-0.7); EOSINOPHILS % (AUTO) 0.8 %; HCT - HEMATOCRIT 41.5 % (37.0-47.0); HGB - HEMOGLOBIN 14.2 g/dL (12.0-16.0); LYMPHOCYTES # (AUTO) 0.9 10^3/uL (1.5-3.5); LYMPHOCYTES % (AUTO) 12.2 %; MEAN CORPUSCULAR HGB CONC 34.2 g/dL (32.0-36.0); MEAN CORPUSCULAR VOLUME 90.6 fL (81.0-99.0); MONOCYTES # (AUTO) 1.1 10^3/uL (0.0-1.0); MONOCYTES % (AUTO) 15.4 %; NEUTROPHILS # (AUTO) 5.1 10^3/uL (1.5-6.6); NEUTROPHILS % (AUTO) 69.8 %; PLT - PLATELET COUNT 425 10^3/uL (130-450); RED BLOOD COUNT 4.58 10^6/uL (4.20-5.40); RED CELL DISTRIBUTION WIDTH 13.4 % (12.0-15.0); WHITE BLOOD COUNT 7.2 x10^3/uL (4.8-10.8)
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
[2021-09-26 08:21] LABS: ALBUMIN 4.2 g/dL (3.2-5.5); BILIRUBIN,TOTAL 0.8 mg/dL (0.2-1.0); CALCIUM 9.9 mg/dL (8.5-10.3); CREATININE 0.6 mg/dL (0.4-1.0); POTASSIUM 3.5 mmol/L (3.5-5.0); TOTAL PROTEIN 8.4 g/dL (6.7-8.2)
[2021-09-26 10:23] LABS: BILIRUBIN,URINE NEGATIVE (NEGATIVE); GLUCOSE, URINE (UA) NEGATIVE (NEGATIVE); KETONES,URINE (UA) NEGATIVE (NEGATIVE); LEUKOCYTE ESTERASE, URINE NEGATIVE (NEGATIVE); NITRITE,URINE NEGATIVE (NEGATIVE); OCCULT BLOOD,URINE NEGATIVE (NEGATIVE); PH,URINE 6.5 PH (5.0-7.5); PROTEIN,URINE NEGATIVE (NEGATIVE); UROBILINOGEN,URINE 0.2 (NORMAL) E.U./dL (NORMAL)
[2021-09-26 10:27] LABS: CLARITY,URINE CLEAR (CLEAR)
== END 2021-09-26 11:28 | disposition home or self-care (01) ==
LOC: EDUNIT# → ED 06:52
DX: F03.91 Unspecified dementia, unspecified severity, with behavioral disturbance (principal); I10 Essential (primary) hypertension; Z66 Do not resuscitate
CPT/HCPCS: 36415; 80053; 81003; 83690; 85025; 99283; 99284; A9270; 81001; 87086

== ENCOUNTER 2021-12-02 07:02 | Outpatient (CLI) | payer MEDICARE, OTHER | END 2021-12-02 07:03 | disposition EMS.NT | LOC: EMS 07:02 | DX: K62.5 Hemorrhage of anus and rectum (principal); Z79.01 Long term (current) use of anticoagulants ==

== ENCOUNTER 2021-12-04 08:00 | Outpatient (CLI) | payer MEDICARE, OTHER ==
--- NOTE | 2021-12-04 11:58 | XRAY Report ---
PROCEDURE: Pelvis 3 View INDICATIONS: PELVIC FRACTURE TECHNIQUE: 3 view(s) of the pelvis acquired. COMPARISON: 08/11/2021 FINDINGS: Bones: Normal bone mineralization. There is sclerosis and callus noted involving the left superior pu bic ramus. Remainder the osseous structures unremarkable. Soft tissues: Visualized bowel gas pattern is normal. No suspicious soft tissue calcifications. IMPRESSION: Healed left superior pubic rami fracture Reviewed by: Ralph Oconnor MD on 12/04/2021 10:56 AM PRABHAKAR Approved by: Ralph Oconnor MD on 12/04/2021 10:56 AM PRABHAKAR Station ID: [id number]
== END 2021-12-04 23:59 | disposition home or self-care (01) ==
LOC: DI.WOS 08:00
PROVIDERS: ATTEND Orthopaedic Surgery
DX: S32.502D Unspecified fracture of left pubis, subsequent encounter for fracture with routine healing (principal)

== ENCOUNTER 2022-03-26 12:51 | Outpatient (CLI) | payer MEDICARE, OTHER | END 2022-03-26 12:52 | disposition critical access hospital (66) | LOC: EMS 12:51 | DX: R10.9 Unspecified abdominal pain (principal); R11.0 Nausea; R19.7 Diarrhea, unspecified | CPT/HCPCS: A0425; A0429 ==

== ENCOUNTER 2022-03-26 13:13 | Emergency (ER) | payer MEDICARE, OTHER ==
[2022-03-26 13:50] LABS: BILIRUBIN,URINE NEGATIVE (NEGATIVE); GLUCOSE, URINE (UA) NEGATIVE (NEGATIVE); KETONES,URINE (UA) NEGATIVE (NEGATIVE); LEUKOCYTE ESTERASE, URINE NEGATIVE (NEGATIVE); NITRITE,URINE NEGATIVE (NEGATIVE); OCCULT BLOOD,URINE NEGATIVE (NEGATIVE); PROTEIN,URINE NEGATIVE (NEGATIVE); UROBILINOGEN,URINE 0.2 (NORMAL) E.U./dL (NORMAL)
[2022-03-26 13:55] LABS: CLARITY,URINE CLEAR (CLEAR)
[2022-03-26] MEDS ORDERED: SODIUM CHLORIDE 0.9% 500 ML IV STA (14:01)
[2022-03-26] MEDS ORDERED: ONDANSETRON 4 MG/2 ML VIAL IVP STA (14:01)
[2022-03-26 14:04] LABS: BASOPHILS % (AUTO) 0.6 %; EOSINOPHILS # (AUTO) 0.1 10^3/uL (0.0-0.7); EOSINOPHILS % (AUTO) 1.5 %; HCT - HEMATOCRIT 43.7 % (37.0-47.0); LYMPHOCYTES # (AUTO) 1.4 10^3/uL (1.5-3.5); LYMPHOCYTES % (AUTO) 21.4 %; MEAN CORPUSCULAR HEMOGLOBIN 29.7 pg (27.0-31.0); MEAN CORPUSCULAR VOLUME 92.6 fL (81.0-99.0); MONOCYTES % (AUTO) 15.7 %; NEUTROPHILS # (AUTO) 3.9 10^3/uL (1.5-6.6); NEUTROPHILS % (AUTO) 60.5 %; PLT - PLATELET COUNT 337 10^3/uL (130-450); RED BLOOD COUNT 4.72 10^6/uL (4.20-5.40); RED CELL DISTRIBUTION WIDTH 13.4 % (12.0-15.0); WHITE BLOOD COUNT 6.5 x10^3/uL (4.8-10.8)
--- NOTE | 2022-03-26 14:06 | ED Physician Documentation ---
History of Present Illness - Stated complaint Stated Complaint: ABD pain - Chief complaint Chief Complaint: Abd Pain - Additonal information Additional information: 87-year-old female presents emergency department with her caregiver for evalu ation of diarrhea, vomiting and abdominal pain. History is obtained by the caregiver given patient's history of dementia. She is a good historian. Caregiver reports that yesterday while she was caring for the patient she had multiple episodes of loose watery stool. Mildly mucoid but nonbloody. She did give her a dose of Imodium. Since then she has had no further diarrhea but this morning the patient was complaining of abdominal pain and vomited. The pain limited her ability to get up from a sitting position. Caregiver denies patient had any fevers. She was recently treated for a urinary tract infection. Patient does have a history of dementia, htn and atrial fibrillation anticoagulated on Eliquis. Meds: Amlodipine, Eliquis, trazodone, lorazepam as needed, metoprolol Review of Systems Constitutional: denies: Fever, Chills GI: reports: Abdominal Pain, Vomiting, Diarrhea. denies: Bloody / black stool : reports: Reviewed and negative Skin: reports: Reviewed and negative Musculoskeletal: reports: Reviewed and negative PD PAST MEDICAL HISTORY - Past Medical History Cardiovascular: Hypertension Respiratory: None Neuro: Dementia, TIA, Migraines Endocrine/Autoimmune: None GI: Chronic diarrhea, Other VENEER SANDER: Other : Incontinence, Frequency HEENT: Chronic vision loss Psych: None Musculoskeletal: Osteoarthritis Derm: None - Past Surgical History Past Surgical History: Yes General: Appendectomy Ortho: Other /VENEER SANDER: Hysterectomy - Present Medications Home Medications: Ambulatory Orders Medication Instructions Recorded Confirmed Amlodipine Besylate [Norvasc] 2.5 mg PO DAILY 07/26/20 10/15/21 diazePAM [Valium] 5 mg PO TID PRN #25 tablet 09/26/21 10/15/21 Ibuprofen [Motrin Ib] 200 mg PO Q6HR PRN 10/15/21 10/15/21 Metoprolol Succinate [Toprol Xl] 25 mg PO DAILY 10/15/21 10/15/21 Non Formulary 100 mg PO DAILY 10/15/21 10/15/21 Ondansetron Odt [Zofran] 4 mg TL Q6H PRN #10 tablet 03/26/22 - Allergies Allergies/Adverse Reactions: Allergies Allergy/AdvReac Type Severity Reaction Status Date / Time gluten Allergy Severe Celiac Verified 10/15/21 10:12 disease Penicillins Allergy Unknown Verified 10/15/21 10:12 - Social History Does the pt smoke?: No Smoking Status: Never smoker Does the pt drink ETOH?: No Does the pt have substance abuse?: No - Immunizations Immunizations are current?: Yes - POLST Patient has POLST: No POLST Status: DNR (this is her wish and I shared that with her son) PD ED PE NORMAL - General General: No acute distress. No: Alert and oriented X 3 (Confused with dementia but at baseline per caregiver) - HEENT HEENT: Atraumatic, Moist mucous membranes, Pharynx benign (Moist mucous membranes) - Neck Neck: Supple, no meningeal sign, No adenopathy - Cardiac Cardiac: No murmur, Strong equal pulses. No: RRR (Irregularly irregular rate controlled A. fib on monitor heart rate in the 70s) - Respiratory Respiratory: No respiratory distress, Clear bilaterally - Abdomen Abdomen: Normal bowel sounds, Soft, Non distended. No: Non tender (Generally tender but nonperitoneal abdominal exam. Left greater than right sided tenderness) - Back Back: No CVA TTP, No spinal TTP - Derm Derm: Normal color, Warm and dry - Extremities Extremities: No deformity - Neuro Neuro: equipment coordinator 2-12 intact. No: Alert and oriented X 3 (Dementia baseline) Eye Opening: Spontaneous Motor: Obeys Commands Verbal: Confused GCS Score: 14 Results - Vitals Vitals: Vital Signs - 24 hr 03/26/22 13:23 Temperature 37.2 C Heart Rate 73 Respiratory 15 Rate Blood Pressure 154/83 H O2 Saturation 98 Oxygen O2 Source Room air - Labs Labs: Laboratory Tests 03/26/22 03/26/22 03/26/22 13:44 13:58 13:58 WBC 6.5 RBC 4.72 Hgb 14.0 Hct 43.7 MCV 92.6 MCH 29.7 MCHC 32.0 RDW 13.4 Plt Count 337 MPV 10.0 Neut # (Auto) 3.9 Lymph # (Auto) 1.4 L [place] # (Auto) 1.0 Eos # (Auto) 0.1 Baso # (Auto) 0.0 Absolute Nucleated RBC 0.00 Nucleated RBC % 0.0 Sodium 134 L Potassium 4.2 Chloride 98 L Carbon Dioxide 28 Anion Gap 8.0 BUN 17 Creatinine 0.8 Estimated GFR (MDRD) 68 L Glucose 97 Calcium 9.5 Total Bilirubin 0.9 AST 27 ALT 17 Alkaline Phosphatase 55 Total Protein 7.9 Albumin 4.0 Globulin 3.9 Albumin/Globulin Ratio 1.0 Lipase 38 Urine Color YELLOW Urine Clarity CLEAR Urine pH 7.0 Ur Specific [place] <=1.005 Urine Protein NEGATIVE Urine Glucose (UA) NEGATIVE Urine Ketones NEGATIVE Urine Occult Blood NEGATIVE Urine Nitrite NEGATIVE Urine Bilirubin NEGATIVE Urine Urobilinogen 0.2 (NORMAL) Ur Leukocyte Esterase NEGATIVE Ur Microscopic Review NOT INDICATED Urine Culture Comments NOT INDICATED PD Medical Decision Making - ED course Complexity details: reviewed results, re-evaluated patient, considered differential, d/w patient, other (Discussed with caregiver) ED course: 87-year-old female who has a history of hypertension, atrial fib anticoagulated on Eliquis as well as dementia was brought to the emergency department by her caregiver for evaluation of diarrhea that she had yesterday that has subsequently resolved following a dose of Imodium as well as a 1 episode of vomiting this morning and reported abdominal pain. On exam the patient appears remarkably well as well as well cared for. Her vital signs are normal without fever. No tachycardia or hypotension. EKG is atrial fibrillation but unchanged from previous. Her abdominal exam was benign with no tenderness focal guarding or rebound present. Given the age however we did proceed to complete a CBC, electrolytes and urinalysis. Per my personal interpretation there were no acute findings to suggest infection or worrisome electrolyte abnormalities. The urinalysis shows no findings of cystitis. We did proceed to do a CT of the abdomen. There was some motion artifact and the radiologist queried whether there could be some pancreatic fat stranding concerning for pancreatitis. However on exam she has no pain in the upper abdomen and there is no lipase elevation thus I doubt an acute pancreatitis. Patient was administered Zofran here in the emergency department tolerating sips of clear liquids. She will be discharged home in stable condition with a limited prescription for Zofran. I discussed routine conservative care measures of what I believed to be a viral enteritis. Emergent return precautions were discussed for failure symptoms to resolve Departure - Departure Disposition: 01 Home, Self Care Clinical Impression: Abdominal pain Qualifiers: Abdominal location: unspecified location Qualified Code(s): R10.9 - Unspecified abdominal pain Condition: Stable Record reviewed to determine appropriate education?: Yes Prescriptions: Ondansetron Odt [Zofran] 4 mg TL Q6H PRN #10 tablet PRN Reason: Nausea / Vomiting Comments: Griselda was seen today in the emergency department because yesterday she had diarrhea and today she had some vomiting and abdominal pain. We did obtain some routine labs including a CBC and electrolytes that were all essentially normal. Her urine shows no signs of infection. The CT of her abdomen did not show any acute worrisome findings. She did have some movement during the CT and there was a question if she could have some mild pancreatitis. However I do not think that this exist today as her lipase is normal and she does not have pain in this region. I suspect that the cause of her symptoms has been a mild viral stomach bug. I sent a prescription for some Zofran to the [facility] in [place]. You can give this to her 2-3 times a day for the next few days. I encourage clear liquids over the next 24 to 48 hours and as her symptoms improve you can then resume her regular diet. Return immediately to the ER if she develops any fevers, sudden severe or different abdominal pain, has uncontrolled vomiting, black or bloody stools.
[2022-03-26] MEDS ORDERED: iohexoL-300 100 ML VIAL ONE (14:15)
[2022-03-26 14:16] LABS: BILIRUBIN,TOTAL 0.9 mg/dL (0.2-1.0); CALCIUM 9.5 mg/dL (8.5-10.3); CREATININE 0.8 mg/dL (0.4-1.0); POTASSIUM 4.2 mmol/L (3.5-5.0); TOTAL PROTEIN 7.9 g/dL (6.7-8.2)
--- NOTE | 2022-03-26 15:08 | CT Report ---
PROCEDURE: ABDOMEN/PELVIS W INDICATIONS: abdominal pain, l>r; vomiting, diarrhe CONTRAST: 100ml Omnipaque 300 TECHNIQUE: After the administration of IV contrast, 5 mm thick sections acquired from the diaphragms to the symp hysis. 5 mm thick coronal and sagittal reformats were acquired. For radiation dose reduction, the f ollowing was used: automated exposure control, adjustment of mA and/or kV according to patient size. COMPARISON: 10/15/2021 FINDINGS: Image quality: Moderate motion degradation Lower chest: Basal scarring/atelectasis. Small hiatal hernia, possible epiphrenic diverticulum. Cardi omegaly. Biatrial enlargement. Coronary calcifications. Solid organs: Possible hepatic steatosis. Liver is otherwise unremarkable. Gallbladder is unremarkable on limited CT evaluation. Similar prominent appearance of the pancreatic duct. No pathologic biliary ductal dilation. Trace peripancreatic fat stranding is nonspecific. No sp lenomegaly. No adrenal nodules. No hydronephrosis. Vessels and lymph nodes: No abdominal aortic aneurysm. Atherosclerotic calcifications are present. Th e main portal vein is patent. No pathologic adenopathy by size criteria. Bowel and peritoneum: No small bowel obstruction or pathologic ascites Body wall: Unremarkable Pelvis: Bladder is unremarkable. Hysterectomy. Bones: Pelvic ring deformities again seen. Scattered degenerative changes. No acute or suspicious oss eous abnormality. IMPRESSION: Moderate motion limitations on this CT. Questionable mild peripancreatic fat stranding, correlate wit h lipase and any clinical signs of pancreatitis. No drainable fluid collection in the abdomen. No oth er acute pathology identified. Old pelvic ring deformities. Other incidental and likely senescent fin dings are described above. Reviewed by: Raymundo Pickens MD on 03/26/2022 3:06 PM PST Approved by: Raymundo Pickens MD on 03/26/2022 3:06 PM PST Station ID: [id number]
[2022-03-26] MEDS ORDERED: iohexoL-300 100 ML VIAL IVP ONE (15:16)
[2022-03-26 15:37] VITALS: BP 131/65
== END 2022-03-26 15:30 | disposition home or self-care (01) ==
LOC: EDUNIT# → ED 13:13
DX: R10.9 Unspecified abdominal pain (principal); I10 Essential (primary) hypertension
CPT/HCPCS: 36415; 74177; 80053; 81003; 83690; 85025; 96374; 99284; Q9967; 81001; 87086

== ENCOUNTER 2022-04-29 11:03 | Outpatient (CLI) | payer MEDICARE, OTHER | END 2022-04-29 23:59 | disposition critical access hospital (66) | LOC: EMS 11:03 | DX: M53.3 Sacrococcygeal disorders, not elsewhere classified (principal); R29.6 Repeated falls; Z74.09 Other reduced mobility; Z79.01 Long term (current) use of anticoagulants | CPT/HCPCS: A0425; A0429 ==

== ENCOUNTER 2022-04-29 11:25 | Emergency (ER) | payer MEDICARE, OTHER ==
[2022-04-29 12:32] LABS: BASOPHILS # (AUTO) 0.1 10^3/uL (0.0-0.1); EOSINOPHILS # (AUTO) 0.2 10^3/uL (0.0-0.7); EOSINOPHILS % (AUTO) 2.9 %; HCT - HEMATOCRIT 46.5 % (37.0-47.0); HGB - HEMOGLOBIN 14.8 g/dL (12.0-16.0); LYMPHOCYTES # (AUTO) 1.3 10^3/uL (1.5-3.5); LYMPHOCYTES % (AUTO) 16.4 %; MEAN CORPUSCULAR HGB CONC 31.8 g/dL (32.0-36.0); MEAN CORPUSCULAR VOLUME 94.1 fL (81.0-99.0); MEAN PLATELET VOLUME 10.3 fL (7.9-10.8); MONOCYTES # (AUTO) 1.3 10^3/uL (0.0-1.0); MONOCYTES % (AUTO) 15.8 %; NEUTROPHILS # (AUTO) 5.1 10^3/uL (1.5-6.6); NEUTROPHILS % (AUTO) 63.5 %; PLT - PLATELET COUNT 350 10^3/uL (130-450); RED BLOOD COUNT 4.94 10^6/uL (4.20-5.40); RED CELL DISTRIBUTION WIDTH 13.6 % (12.0-15.0)
[2022-04-29 12:43] LABS: ALBUMIN 3.8 g/dL (3.2-5.5); ALBUMIN/GLOBULIN RATIO 0.9 (1.0-2.2); BILIRUBIN,TOTAL 0.6 mg/dL (0.2-1.0); CALCIUM 9.6 mg/dL (8.5-10.3); CREATININE 0.6 mg/dL (0.4-1.0); POTASSIUM 3.5 mmol/L (3.5-5.0); TOTAL PROTEIN 8.1 g/dL (6.7-8.2)
--- NOTE | 2022-04-29 12:44 | ED Physician Documentation ---
History of Present Illness - Stated complaint Stated Complaint: GLF/DIFFICULTY STANDING - Chief complaint Chief Complaint: Ext Problem - History obtained from History obtained from: Patient, Family, Caregiver - History of Present Illness Pain level max: 2 Pain level now: 2 - Additonal information Additional information: 87-year-old female, history of dementia brought in by her caregiver today. Reportedly she had 2 falls on Friday. Since that time she has had increased difficulty walking. Occasionally complains of pain to the hip, right or left. Occasionally complains of pain to the right knee and the left knee as well. Patient is on Eliquis. Unclear if she struck her head or not. No vomiting. No changes in mental status. No focal neurological deficits reported Review of Systems Unable to obtain: Dementia PD PAST MEDICAL HISTORY - Past Medical History Cardiovascular: Hypertension, Atrial fibrillation Respiratory: None Neuro: Dementia, CVA Endocrine/Autoimmune: None GI: Chronic diarrhea, Other PEGGER: Other : Incontinence, Frequency HEENT: Chronic vision loss Psych: None Musculoskeletal: Osteoarthritis Derm: None - Past Surgical History Past Surgical History: Yes General: Appendectomy Ortho: Other /PEGGER: Hysterectomy - Present Medications Home Medications: Ambulatory Orders Medication Instructions Recorded Confirmed Amlodipine Besylate [Norvasc] 2.5 mg PO DAILY 07/26/20 03/29/22 diazePAM [Valium] 5 mg PO TID PRN #25 tablet 09/26/21 03/29/22 Metoprolol Succinate [Toprol Xl] 12.5 mg PO DAILY 10/15/21 03/29/22 Ondansetron Odt [Zofran Odt] 4 mg TL Q6H PRN #10 tablet 03/26/22 03/29/22 Acetaminophen [Tylenol] 500 mg PO DAILY PRN 03/29/22 03/29/22 Apixaban [Eliquis] 5 mg PO BID 03/29/22 03/29/22 Calcium Carbonate/Vitamin D3 1 each PO DAILY 03/29/22 03/29/22 [Calcium 500 mg-Vit D3 600 Unit] Folic Acid 1 mg PO DAILY 03/29/22 03/29/22 traZODone [Desyrel] 50 mg PO HS 03/29/22 03/29/22 Atorvastatin [Lipitor] 80 mg PO QPM #30 tab 04/01/22 Zinc Oxide 20% Oint [Zinc Oxide] 1 applic TOP PRN PRN each 04/01/22 - Allergies Allergies/Adverse Reactions: Allergies Allergy/AdvReac Type Severity Reaction Status Date / Time gluten Allergy Severe Celiac Verified 10/15/21 10:12 disease Penicillins Allergy Unknown Verified 10/15/21 10:12 - Social History Does the pt smoke?: No Smoking Status: Never smoker Does the pt drink ETOH?: No Does the pt have substance abuse?: No - Immunizations Immunizations are current?: Yes - POLST Patient has POLST: No POLST Status: DNR (this is her wish and I shared that with her son) PD ED PE NORMAL - Vitals Vital signs reviewed: Yes - General General: No acute distress, Other (alert, oriented to person, intermittently to place) - HEENT HEENT: PERRL - Cardiac Cardiac: RRR, No murmur - Respiratory Respiratory: Clear bilaterally - Abdomen Abdomen: Soft, Non tender, Non distended - Derm Derm: Warm and dry, No rash - Extremities Extremities: No deformity, No tenderness to palpate, Normal ROM s pain, No edema - Neuro Neuro: No motor deficit, No sensory deficit, Normal speech, Other (alert) - Psych Psych: Normal mood, Normal affect Results - Vitals Vitals: Vital Signs - 24 hr 04/29/22 04/29/22 04/29/22 11:43 12:30 14:02 Temperature 36.8 C Heart Rate 69 69 75 Respiratory 18 Rate Blood Pressure 169/89 H 147/100 H 147/90 H O2 Saturation 99 96 98 Oxygen O2 Source Room air - Labs Labs: Laboratory Tests 04/29/22 04/29/22 04/29/22 12:22 12:22 13:20 WBC 8.0 RBC 4.94 Hgb 14.8 Hct 46.5 MCV 94.1 MCH 30.0 MCHC 31.8 L RDW 13.6 Plt Count 350 MPV 10.3 Neut # (Auto) 5.1 Lymph # (Auto) 1.3 L Brule # (Auto) 1.3 H Eos # (Auto) 0.2 Baso # (Auto) 0.1 Absolute Nucleated RBC 0.00 Nucleated RBC % 0.0 Sodium 135 Potassium 3.5 Chloride 97 L Carbon Dioxide 29 Anion Gap 9.0 BUN 13 Creatinine 0.6 Estimated GFR (MDRD) 94 Glucose 111 H Calcium 9.6 Total Bilirubin 0.6 AST 41 ALT 30 Alkaline Phosphatase 150 H Total Protein 8.1 Albumin 3.8 Globulin 4.3 H Albumin/Globulin Ratio 0.9 L Urine Color LT. YELLOW Urine Clarity CLEAR Urine pH 7.0 Ur Specific Gays <=1.005 Urine Protein NEGATIVE Urine Glucose (UA) NEGATIVE Urine Ketones NEGATIVE Urine Occult Blood NEGATIVE Urine Nitrite NEGATIVE Urine Bilirubin NEGATIVE Urine Urobilinogen 0.2 (NORMAL) Ur Leukocyte Esterase NEGATIVE Ur Microscopic Review NOT INDICATED Urine Culture Comments NOT INDICATED - Rads (name of study) head CT Radiology: Final report received, See rad report cervical spine CT Radiology: Final report received, See rad report B hip xray Radiology: Final report received, See rad report B knee xray Radiology: Final report received, See rad report PD Medical Decision Making - ED course Complexity details: reviewed results, re-evaluated patient, considered differential, d/w patient, d/w family ED course: 87-year-old female with a longstanding history of dementia. Presents after 2 ground-level falls 2 days ago. White blood cell count is normal, CBC is normal. Chemistries are normal. Mildly elevated alkaline phosphatase. Urinalysis does not show any acute abnormalities. No acute findings on x-rays or CTs. Ambulating without difficulty. She usually uses a walker. No back pain. Patient is eating and drinking without difficulty. We will have her follow-up with her doctor for further care. Family counseled regarding signs and symptoms for which I believe and urgent re-evaluation would be necessary. Family with good understanding of and agreement to plan and is comfortable going home at this time This document was made in part using voice recognition software. While efforts are made to proofread this document, sound alike and grammatical errors may occur. Departure - Departure Disposition: 01 Home, Self Care Clinical Impression: Multiple falls Condition: Good Instructions: ED Mechanical Fall Follow-Up: Paola Belle MD [Primary Care Provider] - Within 1 week Comments: Please follow-up with her doctor for further care. Her head CT, cervical spine CT, bilateral hip x-rays, bilateral knee x-rays and laboratory testing did not show any significant abnormalities today. She does not have a bladder infection. She is able to ambulate with a walker here. Please return if she worsens. Discharge Date/Time: 04/29/22 15:39
--- NOTE | 2022-04-29 13:11 | XRAY Report ---
PROCEDURE: Hips 2V BILAT INDICATIONS: fall, hip pain TECHNIQUE: 2 views of the hips were acquired. COMPARISON: None FINDINGS: Bones: No fractures or dislocations. No suspicious bony lesions. The visualized pelvic ring appear s intact. Soft tissues: No suspicious soft tissue calcifications or masses. IMPRESSION: No displaced fractures. If there is high concern for occult injury, consider repeat radiography or cr oss-sectional imaging. Reviewed by: Matt Tomlinson on 04/29/2022 1:10 PM [place] Approved by: Matt Tomlinson on 04/29/2022 1:10 PM [facility] [[email or web address]] Station ID: [id number]
--- NOTE | 2022-04-29 13:14 | XRAY Report ---
PROCEDURE: Knee 4 View BILAT INDICATIONS: fall, knee pain TECHNIQUE: 4 views of the the knee(s) were acquired. COMPARISON: None. FINDINGS: Bones: No fractures or dislocations. No suspicious bony lesions. Tricompartmental joint space narr owing with associated osteophytosis. Chondrocalcinosis. Soft tissues: No joint effusion. No suspicious soft tissue calcifications. IMPRESSION: 1. No displaced fracture. If there is high concern for occult injury, consider repeat radiography or cross-sectional imaging. 2. Moderate tricompartmental osteoarthritis. 3. Chondrocalcinosis. Reviewed by: Matt Tomlinson on 04/29/2022 1:[address] [facility] Approved by: Matt Tomlinson on 04/29/2022 1:[address] [facility] Station ID: [id number]
[2022-04-29 13:36] LABS: BILIRUBIN,URINE NEGATIVE (NEGATIVE); GLUCOSE, URINE (UA) NEGATIVE (NEGATIVE); KETONES,URINE (UA) NEGATIVE (NEGATIVE); LEUKOCYTE ESTERASE, URINE NEGATIVE (NEGATIVE); NITRITE,URINE NEGATIVE (NEGATIVE); OCCULT BLOOD,URINE NEGATIVE (NEGATIVE); PROTEIN,URINE NEGATIVE (NEGATIVE); UROBILINOGEN,URINE 0.2 (NORMAL) E.U./dL (NORMAL)
[2022-04-29 13:37] LABS: CLARITY,URINE CLEAR (CLEAR)
[2022-04-29 14:06] VITALS: BP 147/90
--- NOTE | 2022-04-29 14:16 | CT Report ---
PROCEDURE: HEAD WO INDICATIONS: fall, possible head injury TECHNIQUE: Noncontrast 4.5 mm thick angled axial sections acquired from the foramen magnum to the vertex. For r adiation dose reduction, the following was used: automated exposure control, adjustment of mA and/or kV according to patient size. COMPARISON: 03/31/2022 FINDINGS: Image quality: Excellent. CSF spaces: Basal cisterns are patent. No extra-axial fluid collections. Ventricles are normal in size and shape. Brain: No midline shift. No intracranial masses or hemorrhage. Gutierrez-white matter interface is norm al. Age-related volume loss and severe small vessel ischemic change, right greater than left, suggest ing possible previous right deep white matter infarct. There is old right-sided infarct extending foc ally to the frontal cortex. Skull and face: Calvarium and visualized facial bones are intact, without suspicious lesions. Sinuses: Visualized sinuses and mastoids are clear. IMPRESSION: 1. Age-related volume loss, severe small vessel ischemic change, old right frontal infarct. 2. No evidence of acute intracranial abnormality. Reviewed by: Eric Ware MD on 04/29/2022 2:15 PM PST Approved by: Eric Ware MD on 04/29/2022 2:15 PM PST Station ID: [id number]
--- NOTE | 2022-04-29 14:26 | CT Report ---
PROCEDURE: CERVICAL SPINE WO INDICATIONS: fall, possible neck injury TECHNIQUE: Noncontrast 3 mm thick sections acquired from the skull base to the T4 level. Sagittal and coronal r eformats were then constructed. For radiation dose reduction, the following was used: automated exp osure control, adjustment of mA and/or kV according to patient size. COMPARISON: 10/15/2021. FINDINGS: Image quality: Excellent. Bones: No fractures or dislocations. Remote ACDF from C3 through C5. No evidence of hardware failur e or loosening. Multilevel left facet arthropathy. Associated severe left foraminal narrowing. Visual ized superior ribs are intact. Soft tissues: Prevertebral soft tissues are normal in thickness. No paravertebral hematomas. No ap ical pneumothoraces. IMPRESSION: 1. No evidence acute cervical fracture or dislocation. 2. Expected appearance of cervical fusion hardware. 3. Severe cervical spondylitic change. Reviewed by: Eric Ware MD on 04/29/2022 2:25 PM PST Approved by: Eric Ware MD on 04/29/2022 2:25 PM PST Station ID: [id number]
== END 2022-04-29 15:39 | disposition home or self-care (01) ==
LOC: EDUNIT# → ED 11:25
DX: M25.559 Pain in unspecified hip (principal); M25.562 Pain in left knee; M25.561 Pain in right knee; W19.XXXA Unspecified fall, initial encounter; Z91.81 History of falling; Y92.9 Unspecified place or not applicable; F03.90 Unspecified dementia, unspecified severity, without behavioral disturbance, psychotic disturbance, mood disturbance, and anxiety; I10 Essential (primary) hypertension; I48.91 Unspecified atrial fibrillation; Z79.01 Long term (current) use of anticoagulants; Z86.73 Personal history of transient ischemic attack (TIA), and cerebral infarction without residual deficits; Z79.899 Other long term (current) drug therapy; Z66 Do not resuscitate
CPT/HCPCS: 36415; 80053; 81001; 81003; 85025; 87086; 99284

== ENCOUNTER 2022-05-12 07:51 | Outpatient (CLI) | payer MEDICARE, OTHER | END 2022-05-12 23:59 | disposition critical access hospital (66) | LOC: EMS 07:51 | DX: M54.9 Dorsalgia, unspecified (principal); W18.30XA Fall on same level, unspecified, initial encounter; Y92.009 Unspecified place in unspecified non-institutional (private) residence as the place of occurrence of the external cause | CPT/HCPCS: A0425; A0429 ==

== ENCOUNTER 2022-05-12 08:10 | Emergency (ER) | payer MEDICARE, OTHER ==
--- NOTE | 2022-05-12 08:32 | ED Physician Documentation ---
History of Present Illness - Stated complaint Stated Complaint: GLF - Chief complaint Chief Complaint: General - History obtained from History obtained from: Patient, EMS - Additonal information Additional information: EMSThe patient is brought to the emergency department by ambulance for chief complaint of back pain after ground-level fall yesterday. States that the patient lives at home with her family and is somewhat ambulatory, though she requires assistance with a walker and has frequent falls. The family does have a wheelchair on hand also. The patient seemed to be fine yesterday after her ground-level fall at home, but when she got up this morning, the family noted that she complained of some low back pain. Medics report that family told him patient is a lot of aches and pains but back pain usually is not something she complains of and they wanted her to be evaluated. The patient is not able to offer much information. She indicates that she hurts somewhere on the right down around her low back, though she cannot be more specific than this. Medics report that the patient has a history of prior CVA and has residual left-sided weakness from this. Patient denies any other complaints. Medics state that she was able to stand, walk a few steps, and pivot when they picked her up at home. 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: Other : Incontinence, Frequency HEENT: Chronic vision loss Psych: None Musculoskeletal: Osteoarthritis Derm: None - Past Surgical History Past Surgical History: Yes General: Appendectomy Ortho: Other /TURKEY PICKER: Hysterectomy - Present Medications Home Medications: Ambulatory Orders Medication Instructions Recorded Confirmed Amlodipine Besylate [Norvasc] 2.5 mg PO DAILY 07/26/20 03/29/22 diazePAM [Valium] 5 mg PO TID PRN #25 tablet 09/26/21 03/29/22 Metoprolol Succinate [Toprol Xl] 12.5 mg PO DAILY 10/15/21 05/12/22 Acetaminophen [Tylenol] 500 mg PO DAILY PRN 03/29/22 03/29/22 Calcium Carbonate/Vitamin D3 1 each PO DAILY 03/29/22 05/12/22 [Calcium 500 mg-Vit D3 600 Unit] Folic Acid 1 mg PO DAILY 03/29/22 05/12/22 traZODone [Desyrel] 50 mg PO HS 03/29/22 05/12/22 Atorvastatin [Lipitor] 80 mg PO QPM #30 tab 04/01/22 05/12/22 Zinc Oxide 20% Oint [Zinc Oxide] 1 applic TOP PRN PRN each 04/01/22 Apixaban [Eliquis] 2.5 mg PO BID 05/12/22 05/12/22 Cyclobenzaprine [Flexeril] 10 mg PO TID PRN #20 tablet 05/12/22 - Allergies Allergies/Adverse Reactions: Allergies Allergy/AdvReac Type Severity Reaction Status Date / Time gluten Allergy Severe Celiac Verified 05/12/22 08:19 disease Penicillins Allergy Unknown Verified 05/12/22 08:19 - Social History Does the pt smoke?: No Smoking Status: Never smoker Does the pt drink ETOH?: No Does the pt have substance abuse?: No - Immunizations Immunizations are current?: Yes - POLST Patient has POLST: No POLST Status: DNR (this is her wish and I shared that with her son) PD ED PE NORMAL - Vitals Vital signs reviewed: Yes - General General: No acute distress, Well developed/nourished, Other (The patient is alert and well cared for in appearance. She answers simple questions with a few words, but is not able to articulate beyond this.) - HEENT HEENT: Atraumatic, PERRL, EOMI, Moist mucous membranes - Neck Neck: Supple, no meningeal sign, No bony TTP - Cardiac Cardiac: RRR, No murmur, Strong equal pulses - Respiratory Respiratory: No respiratory distress, Clear bilaterally - Abdomen Abdomen: Soft, Non tender, Non distended - Back Back: No CVA TTP, No spinal TTP - Derm Derm: Normal color, Warm and dry, No rash - Extremities Extremities: No deformity, Normal ROM s pain, No edema, Other (Pelvis stable to palpation without pain.) - Neuro Neuro: Alert and oriented X 3, 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, Normal speech, Other (Left arm weakness grossly.) - Psych Psych: Normal mood, Normal affect Results - Vitals Vitals: Vital Signs - 24 hr 05/12/22 08:15 Temperature 37.4 C Heart Rate 102 H Respiratory 18 Rate Blood Pressure 180/73 H O2 Saturation 94 Oxygen O2 Source Room air - Rads (name of study) pelvis XR Relevant Findings:: Final report received, See rad report (neg) L spine XR series Relevant Findings:: Final report received, See rad report (nad) PD Medical Decision Making - ED course Complexity details: reviewed results, re-evaluated patient, considered differential, d/w patient ED course: The patient really did not have any physical exam findings, but she was elderly and not a great historian and had pain was unusual for her, and I felt she should have some and imaging done. I did order x-rays of the lumbar spine and pelvis initially. X-ray series were negative. The patient's [id number] had arrived and the patient seemed somewhat uncomfortable in the stretcher, complaining that her back was sore. I spoke with the [id number] and advised her of the negative physical exam and x-ray findings. We discussed that the patient does have a little bit of lateral curvature to her spine and most likely, has strained her back during the process of the fall. She actually is very good bone density on x-ray which is quite remarkable for her age. I have offered the daughter analgesia in the emergency department for the patient and she would like this, as well as perhaps a muscle relaxer if possible. I feel this is reasonable. I have actually discussed with her that perhaps a narcotic pain medication instead of the muscle relaxer will kill 2 birds with 1 stone, but she would just prefer to go with the muscle relaxer at this point. I have ordered ibuprofen, Tylenol, and Flexeril here and sent prescription for Flexeril to the pharmacy of the [id number]'s choice. The [id number] does not think she can get the patient into her small car and drive her home comfortably, so we will arrange for ambulance transfer. We have discussed the usual indications for follow-up and return. Departure - Departure Disposition: 01 Home, Self Care Clinical Impression: Lumbar strain Qualifiers: Encounter type: initial encounter Qualified Code(s): S39.012A - Strain of muscle, fascia and tendon of lower back, initial encounter Condition: Stable Instructions: ED Sprain Strain Lumbar, ED Low Back Pain Injury Prescriptions: Cyclobenzaprine [Flexeril] 10 mg PO TID PRN #20 tablet PRN Reason: Spasms Comments: Ms. Martin has been thoroughly examined in the emergency department. Her pelvis is stable and she has no tenderness whatsoever over the pelvic ring or hips. Additionally, her entire spine is neither tender nor deformed in a way that would indicate dislocation or fracture. Nonetheless, due to her age and her cognitive impairment, we have obtained imaging studies of both the pelvis with hips, and of the lower half of the spine to evaluate whether she may have a fracture of some of the elements that we cannot palpate. Her x-rays look great, and have been officially read by the radiologist. It is not clear exactly where her back pain is coming from, as she is not only nontender over her back but is also nontender in the abdomen; however, she has most likely strained her back during the fall and is experiencing some pain from soft tissue inflammation. She does have some lateral curvature of her spine which is chronic and associated with age, and patients like this are more vulnerable to back strain. We have given Ms. Martin single doses of Tylenol, ibuprofen, and Flexeril which is a muscle relaxer, here in the emergency department. A prescription for the Flexeril has been electronically transmitted to the [facility] in [place], your stated pharmacy of choice. You may also give Ms. Martin Tylenol 650 mg every 4 hours as needed for pain. Because she is on a "blood thinner", she should not be given regular doses of ibuprofen at home. If her back pain goes on for more than the next week or 2, please take her to follow-up with her primary doctor to discuss further management.
--- NOTE | 2022-05-12 09:11 | XRAY Report ---
PROCEDURE: Lumbar Spine 2 View INDICATIONS: fall/pain TECHNIQUE: 2 views of the lumbar spine were acquired. COMPARISON: None. FINDINGS: Bones: Moderate spondylosis with disc space loss, osteophytes, and facet arthropathy. Mild endplate deformities may be from DDD. No traumatic malalignment. Mild leftward curvature. Soft tissues: Overlying bowel gas pattern is normal. No suspicious soft tissue calcifications. IMPRESSION: Moderate spondylosis. No acute abnormality. If there is high concern for further derange ment, consider MRI evaluation. Reviewed by: Raymundo Pickens MD on 05/12/2022 9:10 AM PDT Approved by: Raymundo Pickens MD on 05/12/2022 9:10 AM PDT Station ID: [id number]
--- NOTE | 2022-05-12 09:13 | XRAY Report ---
PROCEDURE: Pelvis 1 View INDICATIONS: fall/pain TECHNIQUE: 1 view(s) of the pelvis acquired. COMPARISON: CT 03/26/22 FINDINGS: Bones: Mild bilateral hip arthrosis. Public symphysis and left obturator ring deformtiies, seen previ ously. Soft tissues: No suspicious calcifications. IMPRESSION: No acute radiographic abnormality. If there is high concern for occult injury, consider repeat radiog margarito or cross-sectional imaging. Suspected old left pelvic deformities. Reviewed by: Raymundo Pickens MD on 05/12/2022 9:12 AM PDT Approved by: Raymundo Pickens MD on 05/12/2022 9:12 AM PDT Station ID: [id number]
[2022-05-12] MEDS ORDERED: CYCLOBENZAPRINE 10 MG TABLET PO STA (09:24)
[2022-05-12] MEDS ORDERED: IBUPROFEN 600 MG TABLET PO STA (09:24)
[2022-05-12] MEDS ORDERED: ACETAMINOPHEN 325 MG TABLET PO STA (09:24)
[2022-05-12 09:55] VITALS: BP 184/94
== END 2022-05-12 10:03 | disposition home or self-care (01) ==
LOC: EDUNIT# → ED 08:10
DX: S39.012A Strain of muscle, fascia and tendon of lower back, initial encounter (principal); W18.30XA Fall on same level, unspecified, initial encounter; Z91.81 History of falling; I10 Essential (primary) hypertension; I48.91 Unspecified atrial fibrillation; F03.90 Unspecified dementia, unspecified severity, without behavioral disturbance, psychotic disturbance, mood disturbance, and anxiety; I69.354 Hemiplegia and hemiparesis following cerebral infarction affecting left non-dominant side; Z79.899 Other long term (current) drug therapy; Z79.01 Long term (current) use of anticoagulants; Z66 Do not resuscitate
CPT/HCPCS: 72100; 72170; 99283; 99284; A9270